=== PATIENT | female | born 1965 | race Caucasian/White ===

== ENCOUNTER 2017-05-18 09:30 | Observation (INO) | payer OTHER ==
[~2017-05-18] VITALS: Ht 167.6 cm; Wt 85.7 kg
--- NOTE | 2017-05-18 13:52 | NUR ---
PATIENT HERE TODAY FOR PREADMISSION APPOINTMENT. PATIENT IS SCHEDULED TO HAVE SURGERY ON 05/31/17 FOR LEFT TOTAL HIP ARTHROPLASTY. PATIENT STATES SHE HAS WENT TO [facility] FOR HER PREOP PHYSICAL THERAPY APPONITMENT ALREADY. HER PARENTS WILL BE HERE TO TRANSPORT HER HOME WHEN SHE DISCHARGES AND WILL TRANSPORT HER TO APPOINTMENTS. SHE HAS A WALKER, RAISED TOILET SEAT, CANE, SHOWER CHAIR AND HAND HELD SHOWER HEAD. SHE WILL BE USING HER WALK IN SHOWER WHEN SHE IS HOME. HER HOME HAS TWO STEPS INTO IT AND A HAND RAIL IS BEING BUILT NOW. THERE ARE NO STEPS INSIDE THE HOME. THIS INFORMATION WILL BE SENT TO DR HARDING OFFICE AND MI PLANNING FOR FOLLOW UP.
[2017-05-31] MEDS ORDERED: ASMANEX220 MC1 INH (07:18)
[2017-05-31] MEDS ORDERED: CYMBALTA60 MG PO (07:19)
[2017-05-31] MEDS ORDERED: ZYRTEC10 MG PO (07:19)
[2017-05-31] MEDS ORDERED: FLONASE ALLERG9.9 ML NAS (07:19)
[2017-05-31] MEDS ORDERED: MIRAPEX0.25 MG PO (07:19)
[2017-05-31] MEDS ORDERED: ULTRAM50 MG PO (07:20)
[2017-05-31] MEDS ORDERED: TYLENOL EXTRA500 MG PO (07:20)
[2017-05-31] MEDS ORDERED: DAYPRO600 MG PO (07:20)
[2017-05-31] MEDS ORDERED: IRON325 M1 PO (07:21)
--- NOTE | 2017-05-31 08:48 | NUR ---
PT SITTING ON BED-ALERT, ORIENTED AND SUPPORTED BY FAMILY. PT ADMITTED THAT SHE WAS SOMEWHAT ANXIOUS ABOUT SURGERY TODAY. VISITED WITH HER FOR A MOMENT, AND WALKED HER THRU SOME OF WHAT SHE COULD EXPECT FOR TODAY. SHE HAD ALL THE INFO SHE NEEDED, SHE JUST SIMPLY WAS OVERTAKEN BY SOME FEAR. HAD PRAYER WITH PT, WILL CONTINUE TO FOLLOW NEEDED
--- NOTE | 2017-05-31 11:14 | NUR ---
05/31/17 1114 Ary Lucio 1034 PT ARRIVED IN PACU SLEEPY WITH NO C/O'S. 1100 PT AWAKE TALKING TO STAFF. XRAY IN DEPT DOING L HIP XRAY. CRYOCUFF TO L HIP ON.
--- NOTE | 2017-05-31 11:47 | NUR ---
PT DENIES PAIN. CAME TO FLOOR TO ROOM 114 FROM PACU, ACCOMPANIED BY CODIE JONES. RECIEVED REPORT FROM CODIE JONES. PT REPORTS NAUSEA HAS MOSTLY CLEARED, BUT DOES COME IN "WAVES" OCCASIONALLY. NO EMESIS. PT HAD SPINAL, IS UNABLE TO MOVE FEET OR TOES, NUMB FROM JUST ABOVE KNEE DOWN.
--- NOTE | 2017-05-31 12:20 | NUR ---
PATIENT SITTING UP IN BED RESTING. CALL BUTTON IN REACH. NO OTHER NEEDS AT THIS TIME.
--- NOTE | 2017-05-31 12:30 | NUR ---
PT IN BED, AWAKE, ALERT. DERMATOME LEVEL AT L3. PT DENIES PAIN. PEDAL PULSES PALPABLE. FEET COOL, CAPILARY REFILL 2 SECONDS. DRESSING TO LEFT HIP C/D/I. SCDs, TEDs, BOLSTER CUSHION, CRYO CUFF IN PLACE.
--- NOTE | 2017-05-31 13:24 | NUR ---
PT TOLERATING CLEAR LIQUIDS. GAVE PT CRACKERS. EDUCATED PT TO CALL IF SHE EXPERIENCES NAUSEA. PT'S SPINAL CONTINUES TO RESOLVE EXPECTED. PT IS NOW ABLE TO MOVE FEET AND TOES. DERMATOME LEVEL L4. DRESSING TO LEFT HIP C/D/I. PT DENIES PAIN, DENIES NAUSEA. CAPILARY REFILL 2 SECONDS TO BOTH FEET, PEDAL PULSES PALPABLE.
--- NOTE | 2017-05-31 13:59 | NUR ---
PT DOING WELL, NOSE ITCHED REQUESTED TISSUE. NO PAIN AT MOMENT, HAD PLEASANT VISIT, SHE IS ALERT AND ORIENTED. EXTENDED A BLESSING, WILL CONTINUE TO FOLLOW
--- NOTE | 2017-05-31 14:13 | NUR ---
DR. TIM IN TO SEE PATIENT.
[2017-05-31] MEDS ORDERED: MUPIROCIN22 GM NAS (14:35)
--- NOTE | 2017-05-31 14:46 | NUR ---
PATIENT GIVEN INFORMATION ON NUCYNTA AND VOLTAREN MEDICATIONS.
--- NOTE | 2017-05-31 15:00 | NUR ---
PT WORKED WITH PHYSICAL THERAPY IN ROOM. SAT UP AT EDGE OF BED, THEN STOOD WITH GAIT BELT WITH 1 PERSON ASSIST USING FWW. TOOK 3-4 STEPS AT BEDSIDE. PT DENIES PAIN. DENIES NAUSEA. DRESSING TO LEFT HIP C/D/I, CMS INTACT. PT REPORTS SENSATION TO BILATERAL FEET/TOES INTACT.
--- NOTE | 2017-05-31 15:38 | NUR ---
PT HAD EPISODE OF INCONTINANCE X 1.
[2017-05-31] MEDS ORDERED: VITAMIN C1000 MG PO (15:43)
[2017-05-31] MEDS ORDERED: OMEPRAZOLE20 M1 PO (15:47)
[2017-05-31] MEDS ORDERED: HAIR, SKIN & N1 EAC1 PO (15:48)
[2017-05-31] MEDS ORDERED: B-COMPLEX WITH1 EAC1 PO (15:49)
--- NOTE | 2017-05-31 16:49 | NUR ---
PT UP TO BEDSIDE COMMODE USING FWW. 1 PERSON ASSIST, TOLERATED TRANSFER WELL.
--- NOTE | 2017-05-31 16:55 | NUR ---
PATIENT RESTING IN BED. CALL BUTTON IN REACH. NO OTHER NEEDS AT THIS TIME.
--- NOTE | 2017-05-31 16:59 | NUR ---
PT HAD LEFT TOTAL HIP SURGERY TODAY. HAS MEPILEX, GAUZE, AND OPSITE TO SURGICAL SITE. DRESSING C/D/I. PT HAD SPINAL. PT REPORTS SENSATION HAS RETURNED FULLY. PT HAS VOIDED X 2 THUS FAR, ONE INCONTINENT VOID, THEN ONE VOID OF URINE ON BEDSIDE COMMODE. PT ALERT, ORIENTED X 4. CMS TO BILATERAL LOWER EXTREMITIES INTACT. PT ON RA, LUNGS CTA, DIMINISHED IN BASES. HEART RATE REGULAR. HAS DENIED PAIN.
--- NOTE | 2017-05-31 18:15 | NUR ---
PATIENT RESTING IN BED WATCHING TV. ICE IN CRYO. NO OTHER NEEDS AT THIS TIME. CALL BUTTON IN REACH.
--- NOTE | 2017-05-31 18:28 | NUR ---
STARTED 1L NS BOLUS. PT DENIES FEELING LIGHTHEADED OR DIZZY. PT RATED PAIN TO LEFT HIP 2/10, REPORTED THAT THIS IS A TOLERABLE LEVEL OF PAIN FOR HER. CALL BUTTON AND PERSONAL SUPPLIES IN REACH. PT TOLERATED 75% OF REGULAR DIET DINNER.
--- NOTE | 2017-05-31 20:05 | NUR ---
UPDATED DR. TIM REGARDING PATIENT'S BP OF 85/45. 500 ML LR BOLUS TO BE GIVEN. DR. HARDING UPDATED AND IS AGREEABLE TO PLAN. WILL MONITOR BP CLOSELY.
--- NOTE | 2017-05-31 21:16 | NUR ---
NOTIFIED DR TIM PT BLOOD PRESSURE POST IVF BOLUS. ORDERS FOR MAINTANCE FLUIDS RECEIVED.
--- NOTE | 2017-05-31 22:57 | NUR ---
1 PERSON ASSIST TO THE BEDSIDE COMMODE WITH WALKER. PATIENT TOLERATED WELL. PATIENT IS BACK IN BED. CALL LIGHT WITHIN REACH. CRYO SCDS ARE BACK ON. PATIENT ASKED FOR SNACK. GAVE CRACKERS AND CRANBERRY JUICE.
--- NOTE | 2017-06-01 02:08 | NUR ---
UPDATED DR. TIM REGARDING PATIENT'S BP OF 97/34 WITH A MAP OF 47. NO NEW ORDERS AT THIS TIME. DR. TIM APPROVES TORDOL FOR PAIN CONTROL AND TO AVOID OPIOIDS.
--- NOTE | 2017-06-01 02:40 | NUR ---
PATIENT RESTING COMFORTABLY IN BED, BREATHING IS EVEN AND UNLABORED. REPORTS 2/10 PAIN AT REST, 5 TO 6/10 WITH AMBULATION. PATIENT CONTINUES TO BE HYPOTENSIVE. DR. TIM MADE AWARE OF BP. PRN TORDOL GIVEN. PATIENT DENIES FURTHER NEEDS. ASSESSMENT DONE. CALL LIGHT WITHIN REACH, ALL ORDERS IN PLACE.
--- NOTE | 2017-06-01 04:58 | NUR ---
PATIENT HAS BEEN RESTING THROUGHOUT SHIFT. PAIN WELL CONTROLLED WITH PRN TORDOL. HAS BEEN HYPOTENSIVE THROUGHOUT SHIFT, REQUIRED 500 ML LR BOLUS. PATIENT'S BP REMAINED LOW AFTER BOLUS, NO FURTHER BOLUSES ADMINISTERED PER DR. TIM. ALL OTHER VITAL SIGNS STABLE. PATIENT IS ALERT AND ORIENTED, CALLS APPROPRIATELY. LUNGS ARE CLEAR, SATS >92% ON ROOM AIR. BOWEL TONES ARE HYPOACTIVE, PATIENT REFUSED TO TAKE MILK OF MAGNESIA DESPITE EDUCATION. DRESSING REMAINS CDI, CMS INTACT. 1PA/FWW, HAS IV FLUIDS INFUSING.
--- NOTE | 2017-06-01 06:16 | NUR ---
UPDATED DR. TIM REGARDING PATIEN'S MAP OF 57 AND LOW URINE OUTPUT. NO NEW ORDERS AT THIS TIME.
--- NOTE | 2017-06-01 06:16 | NUR ---
ASSISTED PATIENT TO BSC WITH 1PA/FWW. TOLERATED WELL. NOW RESTING COMFORTABLY IN BED, BREATHING IS EVEN AND UNLABORED. REPORTS 3/10 PAIN IN LEFT HIP. DENIES NEEDS AT THIS TIME. CALL LIGHT WITHIN REACH.
--- NOTE | 2017-06-01 07:10 | NUR ---
REPORT RECEIVED FROM CODIE HILLMAN. PT IS AWAKE AND ALERT SITTING UP IN BED. APPEARS COMFORTABLE AND DENIES NEEDS AT THIS TIME.
--- NOTE | 2017-06-01 08:51 | NUR ---
AM MEDS ADMINISTERED. PT SITTING UP IN BED. BRUSHED TEETH AND WASHED FACE. CRYO REFILLED AND IN PLACE. SCDS AND AES IN PLACE. DENIES OTHER NEEDS AT THIS TIME. PLAN TO WORK WITH PHYSICAL THERAPY THIS AM AND AMBULATE AD DIOR. CALL LIGHT IN REACH.
--- NOTE | 2017-06-01 10:57 | NUR ---
PT SITTING UP IN CHAIR TALKING IN ON PHONE. DENIES NEEDS ATT.
--- NOTE | 2017-06-01 11:00 | NUR ---
PT SITTING UP IN CHAIR WITH LEGS ELEVATED. PT STATED PAIN WAS INCREASING, CRYO PUT BACK IN PLACE. CALL LIGHT IN REACH. DENIES OTHER NEEDS AT THIS TIME. ON PHONE WITH FAMILY.
--- NOTE | 2017-06-01 13:06 | NUR ---
PT LAYING IN BED. STATED PAIN WAS 5/10 AND MEDICATION ADMINISTERED. CRYO IN PLACE. DENIES OTHER NEEDS AT THIS TIME.
--- NOTE | 2017-06-01 13:18 | NUR ---
PT SITTING IN CHAIR-CRYO CUFF ON. SEEMS TO BE VERY ALERT AND DENIES ANY PAIN AT THE MOMENT. HAS HAD P.T. EARLIER THIS MORNING, AND I THINK SHE FELT VERY AWKARD AND SELF CONSCIOUS. SHE DOES APPEAR TO BE MOTIVATED TO GET BACK UP ON HER FEET, THANKED ME FOR COMING BY. WILL FOLLOW NEEDED
--- NOTE | 2017-06-01 13:47 | NUR ---
PT LAYING IN BED AFTER UP TO RESTROOM. STUDENT CODIE VICK DID VS AND I\O. ALL STABLE WITH CONTINUING LOW BP.
--- NOTE | 2017-06-01 14:26 | NUR ---
CALLED DR MONTES REGARDING LOW POTASSIUM, HE ORDERED 30 MEQ KRIDER X2 OVER 2HRS. PUT IN ORDER. WILL HANG WHEN AVAILABLE.
--- NOTE | 2017-06-01 14:45 | NUR ---
PT SITTING UP IN BED. HAD JUST FINISHED WITH PHYSICAL THERAPY. RATED PAIN 5/10. GIVEN MUNDO. TYLENOL. CRYO IN PLACE. SCD'S IN PLACE. PT HAS VISITORS IN ROOM. DENIES OTHER NEEDS AT THIS TIME.
--- NOTE | 2017-06-01 15:28 | NUR ---
PT SITTING UPRIGHT IN BED. ADMINSITERED TYLENOL. DRESSING CDI. PT DENIES CONCERNS.
--- NOTE | 2017-06-01 18:10 | NUR ---
PT CALLED TO REPORT INCREASING PAIN. ASSESSED VS, BP NOW WNL. CALLED DR HARDING HE DC'D TYLENOL AND ADDED NORCO. DENIED REQUEST FOR FLEXERIL. WILL ADMINISTER WHEN VERIFIED.
--- NOTE | 2017-06-01 19:30 | NUR ---
RECEIVED REPORT FROM RN. PATIENT IS RESTING COMFORTABLY IN BED, BREATHING IS EVEN AND UNLABORED. DENIES NEEDS AT THIS TIME. CALL LIGHT WITHIN REACH, ALL ORDERS IN PLACE.
--- NOTE | 2017-06-01 20:30 | NUR ---
PATIENT RESTING COMFORTABLY IN BED, BREATHING IS EVEN AND UNLABORED. REPORTS 3/10 PAIN AND STATES "PAIN IS OKAY WHEN I AM LAYING IN BED." DENIES NEEDS AT THIS TIME. ASSESSMENT DONE. REFUSING TO MILK OF MAGNESIA, SHE STATES "I AM NOT GOING TO TAKE ANY LAXATIVES WHILE I AM IN THE HOSPITAL." CALL LIGHT WITHIN REACH, ALL ORDERS IN PLACE.
--- NOTE | 2017-06-01 21:05 | NUR ---
ASSISTED PATIENT TO BATHROOM WITH 1PA/FWW. TOLERATING AMBULATION WELL. NOW RESTING IN BED, BREATHING IS EVEN AND UNLABORED. DENIES NEEDS AT THIS TIME. CALL LIGHT WITHIN REACH, ALL ORDERS IN PLACE. CRYO-CUFF REFILLED.
--- NOTE | 2017-06-01 23:29 | NUR ---
PATIENT ASSISTED TO BATHROOM WITH SBA/FWW. TOLERATING AMBULATION WELL. NOW RESTING IN BED, BREATHING IS EVEN AND UNLABORED. REPORTS 4/10 PAIN IN LEFT HIP, PRN PERCOCET GIVEN PER EMAR. BP IS 103/50, PULSE IS 60. WILL CONTINUE TO MONITOR BP CLOSELY. PATIENT DENIES FURTHER NEEDS. CALL LIGHT WITHIN REACH, ALL ORDERS IN PLACE.
--- NOTE | 2017-06-02 01:48 | NUR ---
PATIENT ASSISTED TO BATHROOM WITH SBA/FWW. PATIENT STATES "MY PAIN GETS TO ABOUT A 2 OR 3 WHEN I GET UP. IT ISN'T BAD RIGHT NOW. MAYBE A 2." NOW RESTING COMFORTABLY IN BED, BREATHING IS EVEN AND UNLABORED. DENIES FURTHER NEEDS. ASSESSMENT DONE. CALL LIGHT WITHIN REACH.
--- NOTE | 2017-06-02 04:30 | NUR ---
PATIENT ASSISTED TO BATHROOM WITH SBA/FWW. NOW RESTING IN BED, BREATHING IS EVEN AND UNLABORED. REPORTS 4/10 PAIN IN LEFT HIP, PRN NORCO GIVEN PER EMAR. BP OF 118/58 NOTED. PATIENT DENIES FURTHER NEEDS. CALL LIGHT WITHIN REACH.
--- NOTE | 2017-06-02 04:53 | NUR ---
PATIENT SITTING ON EDGE OF BED. REPORTS MUSCLE SPASMS IN LEFT LEG. SECOND TAB OR NORCO GIVEN. PATIENT DENIES FURTHER NEEDS. CALL LIGHT WITHIN REACH.
--- NOTE | 2017-06-02 05:15 | NUR ---
PATIENT RESTING IN BED COMFORTABLY, BREATHING IS EVEN AND UNLABORED. STATES "THOSE MUSCLE CRAMPS ARE A LOT BETTER NOW. I FEEL MORE COMFORTABLE." DENIES NEEDS AT THIS TIME. CALL LIGHT WITHIN REACH.
[2017-06-02] MEDS ORDERED: XARELTO10 MG PO (07:30)
[2017-06-02] MEDS ORDERED: NUCYNTA50 MG PO (07:30)
[2017-06-02] MEDS ORDERED: HYDROCODON-ACE1 EA11 PO (07:30)
--- NOTE | 2017-06-02 07:30 | NUR ---
REPORT RECIEVED FROM CODIE HILLMAN. PT AWAKE AND STATES SHE IS HOPING TO GO HOME TODAY. PAIN IS WELL CONTROLLED EXCEPT SOME MUSCLE SPASMS. CRYO IN PLACE.
--- NOTE | 2017-06-02 07:54 | NUR ---
PT UP TO BATHROOM. DID AM CARE. BACK TO BED EATING BREAKFAST. WILL DC LATER TODAY. AMBULATES WELL WITH FWW. DENIES OTHER NEEDS AT THIS TIME.
--- NOTE | 2017-06-02 08:12 | NUR ---
PATIENT SITTING UP IN BED EATING BREAKFAST. TIDIED ROOM, HAS BOTTLED WATER. CALL LIGHT IN REACH, NO OTHER NEEDS.
--- NOTE | 2017-06-02 08:54 | NUR ---
FAXED CHART NOTES TO [facility]. THESE INCLUDED FACESHEET, ORDER, H AND P X2, PROG NOTES, PT EVAL AND NOTES. CALLED AND TALKED WITH DESTINEY FROM [facility]. RECIEVED FAX CONFIRMATION.
--- NOTE | 2017-06-02 09:18 | NUR ---
PT ASSISTED TO GET DRESSED. IV REMOVED WNL. DC TEACHING ON PROCEDURE, S/S OF INFECTION, AND FOLLOW UP PROVIDED. ALL QUESTIONS ANSWERED. PT VERBALIZED UNDERSTANDING.
--- NOTE | 2017-06-02 11:12 | NUR ---
PT DRESSED, SITTING ON SIDE OF BED WAITING FOR HER DAD TO COME FOLLOWING DC. SHE IS HAVING TROUBLE WITH LEG CRAMPS THIS MORNING-DANGLING FEET SHE SAID HELPED. SHE SEEMS READY TO DC, EXTENDED A BLESSING
--- NOTE | 2017-06-02 11:15 | NUR ---
PT UP TO BATHROOM WITH WALKER. RAFAEL MOON IN TO ASSIST. VS STABLE. IV REMOVED WNL. PAIN WELL CONTROLLED. EDUCATION PROVIDED. ALL QUESTIONS ANSWERED. PT WHEELED OUT BY RAFAEL MOON TO HOME.
--- NOTE | 2017-06-14 07:09 | OR ---
[facility] [address], [place] [address] Signed DATE OF OPERATION: 05/31/2017 SURGEON: Mika Brandt MD PREOPERATIVE DIAGNOSIS: Degenerative joint disease, left hip. POSTOPERATIVE DIAGNOSIS: Degenerative joint disease, left hip. PROCEDURE PERFORMED: Left total hip arthroplasty. MANAGER FINE: Lizeth Brooks PA-C. Lizeth was present for the entire surgery and was critical for positioning, retraction, and wound closure. ANESTHESIA: Spinal. IMPLANTS: Secure-Fit advanced size #7 stem and a 54 PSL cup with a standard offset liner +5 x 36 ceramic head. BRIEF HISTORY: Vaughn is a 52-year-old female with pain and significant degeneration in her hip. She had undergone operative treatment without substantial relief. Risks, benefits, and alternatives were discussed with her of surgery and she elected to proceed. DESCRIPTION OF PROCEDURE: Once consent was obtained, she was taken to the operating room. After adequate anesthesia, she was placed on the right lateral decubitus position. All downside pressure points well padded. The left hip was prepped and draped in a standard sterile fashion. We did place an axillary roll as well. The hip was approached anterolaterally through a 5-inch incision carried through skin and subcutaneous tissue, and directly down the IT band. The IT band was split longitudinally. The vastus lateralis was then split from the tip of the trochanter up distally and subperiosteally around the level of the lesser trochanter. The gluteus medius was split bluntly. The gluteus minimus and capsule were split sharply from the trochanter all the way to the acetabular rim. This was then peeled off the anterior neck. The labrum was significantly calcified, and Electronically Signed By: MIKA BRANDT MD 06/14/17 0709 PATIENT NAME: VAUGHN BUCIO OPERATIVE REPORT DATE OF : 61 REPORT #: [id number] PHYSICIAN: MIKA BRANDT MD PCP: DARLIN ROLLINS REPORT IS CONFIDENTIAL AND NOT TO BE RELEASED WITHOUT AUTHORIZATION [facility] [address], [place] [address] Signed there were multiple osteophytes that were removed. The hip was dislocated and the femoral neck cut made 1 fingerbreadth above the lesser trochanter. The periacetabular soft tissues were removed and the stem was reamed starting with a 46 and going to 54. The 54 was found to be quite well fitting. The 54 cup was then impacted into excellent position. The abduction was 45 degrees and 15 degrees of anteversion. A single screw was placed in the posterosuperior quadrant. The attention was turned to proximal femur. This was opened using the ernesto cutter followed by the Rosales awl. It was then sequentially reamed up to a 7, 8 and broached to a 7. The 7 was quite well fitting and left in position. The standard offset neck and +0 head was placed. The hip was a little bit sloppy and the +5 showed good range of motion and leg lengths. The trials were removed. The proximal femur was then cleaned and the final stem was impacted until it was well seated. The +5 head was placed on it and impacted until it was well seated. It was quite stable. The hip was reduced. The leg lengths found to be equal. The range of motion was good with no quad tightness. The hip was lavaged using a pulse health insurance assessor with 3 L of antibiotic irrigation was used. The periarticular soft tissues were injected with 100 mL ropivacaine and Toradol mixture. The capsule was then closed using #1 Vicryl. The vastus and IT bands were closed independently using #2 Stratafix. The subcutaneous tissue with 0 Stratafix, and skin with urban. Wound was dressed with Mepilex Ag dressing and Opsite. She was placed in a hip abduction brace, taken to the recovery room in satisfactory condition. All sponge, needle, and instrument counts were correct. Mika Brandt MD BA/MENDEZL /[id number] Copies: ~ Electronically Signed By: MIKA BRANDT MD 06/14/17 0709 PATIENT NAME: VAUGHN BUCIO OPERATIVE REPORT DATE OF : 61 REPORT #: [id number] PHYSICIAN: MIKA BRANDT MD PCP: DARLIN ROLLINS REPORT IS CONFIDENTIAL AND NOT TO BE RELEASED WITHOUT AUTHORIZATION
== END 2017-06-02 11:25 | disposition home or self-care (01) ==
LOC: DSVR 05-31 06:51 → MS 05-31 06:51 → EDSTATUS 05-31 09:00 → MS 05-31 09:00 → DSVR 05-31 11:23 → MS 06-02 11:25
PROVIDERS: ADMIT Specialist
PROC: 0SRB04Z Replacement of Left Hip Joint with Ceramic on Polyethylene Synthetic Substitute, Open Approach (ICD-10-PCS; principal; 2017-05-31 09:00)
DX: M16.12 Unilateral primary osteoarthritis, left hip (principal); G25.81 Restless legs syndrome; J45.30 Mild persistent asthma, uncomplicated; M79.7 Fibromyalgia; D50.9 Iron deficiency anemia, unspecified; K21.9 Gastro-esophageal reflux disease without esophagitis; I95.9 Hypotension, unspecified; Z79.891 Long term (current) use of opiate analgesic; Z79.51 Long term (current) use of inhaled steroids; Z79.899 Other long term (current) drug therapy; Z87.891 Personal history of nicotine dependence; Z88.1 Allergy status to other antibiotic agents; Z88.0 Allergy status to penicillin; Z88.2 Allergy status to sulfonamides
CPT/HCPCS: 01214; 36415; 72170; 80048; 85025; 94640; 96361; 96372; 96374; 96375; 96376; 97110; 97116; 97163; 97165; 97530; C1776; G0378; J0690; J1885; J2250; J2274; J2300; J2405; J2704; J3010; J3370; J7030; J7040; J7050; J7120

== ENCOUNTER 2020-12-27 07:53 | Emergency (ER) | payer OTHER ==
[~2020-12-27] VITALS: Ht 167.6 cm; Wt 81.7 kg
[~2020-12-27 07:53] MED LIST: ASMANEX220 MC1 INH; B-COMPLEX WITH1 EAC1 PO; CYMBALTA60 MG PO; DAYPRO600 MG PO; FLONASE ALLERG9.9 ML NAS; HAIR, SKIN & N1 EAC1 PO; HYDROCODON-ACE1 EA11 PO; IRON325 M1 PO; MIRAPEX0.25 MG PO; MUPIROCIN22 GM NAS; NUCYNTA50 MG PO; OMEPRAZOLE20 M1 PO; TYLENOL EXTRA500 MG PO; ULTRAM50 MG PO; VITAMIN C1000 MG PO; XARELTO10 MG PO; ZYRTEC10 MG PO
[2020-12-27] MEDS ORDERED: WELLBUTRIN XL300 MG PO (08:26)
[2020-12-27] MEDS ORDERED: ONDANSETRON ODT8 MG PO (09:40)
== END 2020-12-27 10:04 | disposition home or self-care (01) ==
LOC: ED 07:53
DX: K52.9 Noninfective gastroenteritis and colitis, unspecified (principal); J45.909 Unspecified asthma, uncomplicated; Z20.822 Contact with and (suspected) exposure to COVID-19; Z87.891 Personal history of nicotine dependence; Z88.0 Allergy status to penicillin; Z88.1 Allergy status to other antibiotic agents; Z88.2 Allergy status to sulfonamides; Z91.018 Allergy to other foods; Z79.01 Long term (current) use of anticoagulants; Z79.899 Other long term (current) drug therapy
CPT/HCPCS: 80053; 85025; 96374; 99284-25; J2405; J7030; U0003

== ENCOUNTER 2021-11-18 07:10 | Inpatient (IN) | payer OTHER ==
[~2021-11-18] VITALS: Ht 165.1 cm; Wt 95.0 kg
--- NOTE | ~2021-11-18 | EKG ---
[facility] [address] [facility] [place], [place] [address] Draft EK completed, results pending confirmation PATIENT NAME: RUPINDERVAUGHN COHN Electrocardiogram DATE OF : 61 PHYSICIAN: PRELIMINARY REPORT #: [id number] REPORT IS CONFIDENTIAL AND NOT TO BE RELEASED WITHOUT AUTHORIZATION
[~2021-11-18 07:10] MED LIST changes: +ONDANSETRON ODT8 MG PO; +WELLBUTRIN XL300 MG PO
--- OUTSIDE RECORDS SUMMARY | 2021-11-18 07:18 | XMS ---
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 - 2 Visits in 30 Days CARE PROVIDERS DARLIN KING Physician Planner Scheduler Current PHONE: Unknown Andrew has no Care Guidelines for this patient. [facility] VISIT COUNT (12 MO.) 3 [facility] TOTAL 3 NOTE: Visits indicate total known visits. 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
[2021-11-18] MEDS ORDERED: ASMANEX220 MC3 (07:28)
[2021-11-18] MEDS ORDERED: PRAMIPEXOLE D0.25 MG PO ×2 (07:28→22:37)
[2021-11-18] MEDS ORDERED: OXAPROZIN600 MG PO (07:28)
[2021-11-18] MEDS ORDERED: BUPROPION XL300 MG PO (22:36)
[2021-11-18] MEDS ORDERED: DULOXETINE HCL60 MG PO (22:37)
== END 2021-11-21 13:25 | disposition home or self-care (01) | DRG 871 ==
LOC: ED 07:10 → MS 11:47
PROVIDERS: ADMIT Family Medicine; ATTEND Family Medicine
PROC: XW033E5 Introduction of Remdesivir Anti-infective into Peripheral Vein, Percutaneous Approach, New Technology Group 5 (ICD-10-PCS; principal; 2021-11-18)
PROC: 3E0333Z Introduction of Anti-inflammatory into Peripheral Vein, Percutaneous Approach (ICD-10-PCS; 2021-11-18)
PROC: 8E0ZXY6 Isolation (ICD-10-PCS; 2021-11-18)
PROC: XW033H6 Introduction of Other New Technology Monoclonal Antibody into Peripheral Vein, Percutaneous Approach, New Technology Group 6 (ICD-10-PCS; 2021-11-18)
PROC: 4A133R1 Monitoring of Arterial Saturation, Peripheral, Percutaneous Approach (ICD-10-PCS; 2021-11-18)
DX: A41.89 Other specified sepsis (principal); U07.1 COVID-19; N17.9 Acute kidney failure, unspecified; E87.2 Acidosis; A08.39 Other viral enteritis; J45.909 Unspecified asthma, uncomplicated; Z98.84 Bariatric surgery status; E86.0 Dehydration; Z23 Encounter for immunization; E83.42 Hypomagnesemia; Z96.642 Presence of left artificial hip joint; Z87.891 Personal history of nicotine dependence; Z98.890 Other specified postprocedural states; Z88.0 Allergy status to penicillin; Z88.2 Allergy status to sulfonamides; Z88.1 Allergy status to other antibiotic agents; Z91.018 Allergy to other foods; Z79.899 Other long term (current) drug therapy; Z79.01 Long term (current) use of anticoagulants; Z79.52 Long term (current) use of systemic steroids
CPT/HCPCS: 36415; 36600; 71045; 80053; 80076; 81001; 82803; 83605; 83735; 84484; 85025; 87040; 87502; 93005; 93010; 94640; 94760; 96361; 96374; 96375; 99285-25; A9270; C9803; J0248; J1100; J1650; J1885; J2060; J2405; J3475; J7050; J7121; U0003

== ENCOUNTER 2021-12-18 08:37 | Emergency (ER) | payer OTHER ==
[~2021-12-18] VITALS: Ht 165.1 cm; Wt 90.7 kg
[~2021-12-18 08:37] MED LIST changes: +ASMANEX220 MC3; +BUPROPION XL300 MG PO; +DULOXETINE HCL60 MG PO; +OXAPROZIN600 MG PO; +PRAMIPEXOLE D0.25 MG PO
--- OUTSIDE RECORDS SUMMARY | 2021-12-18 08:44 | XMS ---
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 - Patient with suicidal and/or homicidal ideations eloped. - Patient eloped with IV in place. Details: PATIENT LWBS CRITERIA MET - [facility] - 2 Visits in 30 Days CARE PROVIDERS DARLIN KING Physician Current PHONE: Unknown Andrew has no Care Guidelines for this patient. [facility] VISIT COUNT (12 MO.) [address] [place] [address] TOTAL 4 NOTE: Visits indicate total known visits. 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 - Allergy status to penicillin - Noninfective gastroenteritis and colitis, unspecified - Unspecified asthma, uncomplicated - Fever, unspecified INPATIENT VISIT TRACKING (12 MO.) 11/18/2021 11:47 [facility] TYPE: [facility] COMPLAINT: - SEPSIS,COVID DIAGNOSES: - Unspecified asthma, uncomplicated - 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 card 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 - Acidosis - Other specified sepsis - Personal history of nicotine dependence - Personal history of nicotine dependence - Allergy status to sulfonamides - Other specified postprocedural states - Other specified sepsis - Other specified postprocedural states - Allergy status to other antibiotic agents - Presence of left artificial hip joint - Dehydration - Allergy to other foods - Acute kidney failure, unspecified - Other residential (current) drug therapy - Acidosis - intermodal customer service (current) use of systemic steroids - intermodal customer service (current) use of anticoagulants - Allergy to other foods - intermodal customer service (current) use of anticoagulants - Bariatric surgery status - intermodal customer service (current) use of systemic steroids - Hypomagnesemia - Dehydration - Hypomagnesemia - Bariatric surgery status - COVID-19 - Allergy status to penicillin - Other viral enteritis - Allergy status to penicillin - Encounter for immunization - Unspecified asthma, uncomplicated - Acute kidney failure, unspecified - Encounter for immunization - Allergy status to other antibiotic agents - Allergy status to sulfonamides - Viral intestinal infection, unspecified - Other viral enteritis - Presence of left artificial hip joint [id number]
[2021-12-18] MEDS ORDERED: ATIVAN2 MG PO (11:50)
[2021-12-18] MEDS ORDERED: ONDANSETRON ODT8 MG PO (11:50)
== END 2021-12-18 12:30 | disposition home or self-care (01) ==
LOC: ED 08:37
DX: K52.9 Noninfective gastroenteritis and colitis, unspecified (principal); N17.9 Acute kidney failure, unspecified; Z20.822 Contact with and (suspected) exposure to COVID-19; J45.909 Unspecified asthma, uncomplicated; Z87.891 Personal history of nicotine dependence; Z88.0 Allergy status to penicillin; Z88.1 Allergy status to other antibiotic agents; Z88.2 Allergy status to sulfonamides; Z91.018 Allergy to other foods; Z79.899 Other long term (current) drug therapy
CPT/HCPCS: 36415; 71045; 80053; 85025; 87502; 96361; 96374; 96375; 99284-25; A9270; C9803; J1200; J1790; J1885; J2060; J2405; J7030; J7121; U0003

== ENCOUNTER 2022-03-25 09:01 | Emergency (ER) | payer OTHER ==
[~2022-03-25] VITALS: Ht 165.1 cm; Wt 90.7 kg
[~2022-03-25 09:01] MED LIST changes: +ATIVAN2 MG PO
[2022-03-25] MEDS ORDERED: CHLORDIAZEPOXID25 MG PO (14:41)
[2022-03-25] MEDS ORDERED: FOLIC ACID1 MG PO (14:51)
[2022-03-25] MEDS ORDERED: VITAMIN B-1100 M1 PO (14:51)
== END 2022-03-25 15:00 | disposition home or self-care (01) ==
LOC: ED 09:01
DX: F10.130 Alcohol abuse with withdrawal, uncomplicated (principal); J45.909 Unspecified asthma, uncomplicated; M79.7 Fibromyalgia; Y90.0 Blood alcohol level of less than 20 mg/100 ml; Z87.891 Personal history of nicotine dependence; Z88.0 Allergy status to penicillin; Z88.2 Allergy status to sulfonamides; Z88.1 Allergy status to other antibiotic agents; Z91.018 Allergy to other foods; Z79.899 Other long term (current) drug therapy
CPT/HCPCS: 36415; 80053; 83690; 83735; 85025; 96361; 96365; 96366; 96375; 99284-25; G0480; J2405; J3411; J7030

== ENCOUNTER 2022-05-26 10:01 | Emergency (ER) | payer OTHER ==
[~2022-05-26] VITALS: Ht 165.1 cm; Wt 90.7 kg
[~2022-05-26 10:01] MED LIST changes: +CHLORDIAZEPOXID25 MG PO; +FOLIC ACID1 MG PO; +VITAMIN B-1100 M1 PO
[2022-05-26] MEDS ORDERED: CHLORDIAZEPOXID25 MG PO (13:25)
--- NOTE | 2022-05-27 16:41 | EKG ---
[facility] [address] [facility] [place] [address] Signed Sinus tachycardia Nonspecific ST and T wave abnormality Abnormal ECG When compared with ECG of 18-NOV-2021 07:20, Nonspecific T wave abnormality no longer evident in Lateral leads Confirmed by JIGNA TIM MD ([id number]) on 05/27/2022 4:41:13 PM Electronically Signed By: JIGNA TIM MD 05/27/22 1641 PATIENT NAME: RUPINDERVAUGHN Electrocardiogram DATE OF : 61 PHYSICIAN: JIGNA TIM MD REPORT #: [id number] REPORT IS CONFIDENTIAL AND NOT TO BE RELEASED WITHOUT AUTHORIZATION
== END 2022-05-26 14:07 | disposition home or self-care (01) ==
LOC: ED 10:01
DX: B34.9 Viral infection, unspecified (principal); F10.10 Alcohol abuse, uncomplicated; Y90.0 Blood alcohol level of less than 20 mg/100 ml; J45.909 Unspecified asthma, uncomplicated; Z87.891 Personal history of nicotine dependence; Z88.0 Allergy status to penicillin; Z91.018 Allergy to other foods; Z88.1 Allergy status to other antibiotic agents; Z88.2 Allergy status to sulfonamides; Z79.899 Other long term (current) drug therapy
CPT/HCPCS: 36415; 71045; 80053; 81003; 85025; 85379; 87502; 87880; 93005; 93010; 96374; 96375; 99285-25; A9270; C9803; G0480; J2060; J2405; J3411; J7121; U0003

== ENCOUNTER 2022-08-05 16:23 | Inpatient (IN) | payer OTHER ==
[~2022-08-05] VITALS: Ht 165.1 cm; Wt 94.8 kg
[2022-08-05] VITALS (8 sets, daily range): BP systolic 108–133; BP diastolic 51–78
--- OUTSIDE RECORDS SUMMARY | 2022-08-05 16:26 | XMS ---
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 - Patient with suicidal and/or homicidal ideations eloped. - Patient eloped with IV in place. 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 Ciara VISIT COUNT (12 MO.) 6 [facility] TOTAL 6 NOTE: Visits indicate total known visits. 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 - Personal history of nicotine dependence - Unspecified asthma, uncomplicated - Viral infection, unspecified 03/25/2022 09:02 [facility] TYPE: Emergency COMPLAINT: - N/V/D DIAGNOSES: - Alcohol abuse with withdrawal, uncomplicated - Allergy status to other antibiotic agents - Allergy status to penicillin - Allergy status to sulfonamides - Allergy to other foods - Blood alcohol level of less than 20 mg/100 ml - Fibromyalgia - Nausea with vomiting, unspecified - Other shelter (current) drug therapy - Personal history of nicotine dependence - Unspecified asthma, uncomplicated 12/18/2021 08:37 [facility] TYPE: Emergency COMPLAINT: - FLU SYMPTOMS DIAGNOSES: - Acute kidney failure, unspecified - Allergy status to other antibiotic agents - Allergy status to penicillin - Allergy status to sulfonamides - Allergy to other foods - Contact with and (suspected) exposure to COVID-19 - Diarrhea, unspecified - Noninfective gastroenteritis and colitis, unspecified - 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 - Personal history of nicotine dependence - Unspecified asthma, uncomplicated 11/18/2021 07:10 [facility] TYPE: Emergency COMPLAINT: - WEAKNESS 10/23/2021 12:27 [facility] TYPE: Emergency COMPLAINT: - FLU SYMPTOMS INPATIENT VISIT TRACKING (12 MO.) 11/18/2021 11:47 [facility] TYPE: Medical Surgical COMPLAINT: - SEPSIS,COVID DIAGNOSES: - Acidosis - Acidosis - Acute kidney failure, unspecified - Acute kidney failure, unspecified - Allergy status to other antibiotic agents - Allergy status to other antibiotic agents - Allergy status to penicillin - Allergy status to penicillin - Allergy status to sulfonamides - Allergy status to sulfonamides - Allergy to other foods - Allergy to other foods - Bariatric surgery status - Bariatric surgery status - COVID-19 - Dehydration - Dehydration - Encounter for immunization - Encounter for immunization - Hypomagnesemia - Hypomagnesemia - intermediate (current) use of anticoagulants - intermediate (current) use of anticoagulants - intermediate (current) use of systemic steroids - intermediate (current) use of systemic steroids - Other shelter (current) drug therapy - 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
--- NOTE | 2022-08-05 21:15 | NUR ---
PT ARRIVED TO ROOM 129 FROM E.D. WITH EMisael RN MACEY Louise, PT ALERT, CONFUSED. SHE IS ABLE TO ASSIST WITH TRANSFER TO HOSP BED FROM STRETCHER, SKIN CHECK, INTACT WITH BRUISES SCATTERED ON ALL EXTREMITIES, BUTTOCKS/HIPS/KNEES/ AND RIGHT FOREHEAD, WITH SMALL LACERATION ABOVE RIGHT EYE, BRUISE AROUND RIGHT EYE.
--- NOTE | 2022-08-05 23:20 | NUR ---
PT ADMINISTERED ATIVAN AT THIS TIME FOR CIWA OF 12, SHE REMAINS RESTLESS/ANXIOUS AND ATTEMPTING TO GET OUT OF BED. SHE CONTINUEST TO ASK FOR HER FATHER BILL TO BE CALLED, HE HAS BEEN HERE WITH HER IN THE ER. PER REPORT HE LEFT AND SAID HE WOULD COME BACK TO VISIT. PT WHILE RESTLESS HER HEART RATE INCREASES HIGH 130/MIN
--- NOTE | 2022-08-05 23:39 | NUR ---
PT RESTING IN BED EYES CLOSED RR REGULAR 18/MIN, SNORING NOTED. 100% OXYGEN SATURATIONS ON 2L N.C.
[2022-08-06] VITALS (15 sets, daily range): BP systolic 93–130; BP diastolic 45–98
--- NOTE | 2022-08-06 00:48 | NUR ---
PT RESTING IN BED NOTED TO HAVE SMALL EMESIS AND COUGHING ALSO HEART RATE INCREASED TO 130/MIN AND REQUIRED 2L OXYGEN PLACED AGAIN. CALLED TO UPDATE, GIVEN ONE TIME ADDITIONAL DOSE OF ZOFRAN 4MG IV.
--- NOTE | 2022-08-06 01:15 | NUR ---
PT RESTING IN BED, EYES CLOSED. NO DISTRESS NOTED. NO FURTHER EMESIS. V/S STABLE AT THIS TIME
--- NOTE | 2022-08-06 01:33 | NUR ---
PT AWAKE, COUGHING, PT ABLE TO ANSWER QUESTIONS APPROPRIATELY, SHE CAN VERBALIZE FULL NAME AND DATE OF . SHE REPORTS NO PAIN OR NAUSEA AT THIS TIME.
--- NOTE | 2022-08-06 02:51 | NUR ---
PT COUGHING ALERT, TWO RN'S IN TO CHANGE ATTENDS AND PT HAD BM AND SMALL VOID OF URINE IN ATTENDS, NEW PURWICK PLACED, NEW GOWN AND LINENS SHE HAD SMALL EMESIS EARLIER THAT WAS CLEANED, BUT NOTED AT THIS TIME TO BE ON SHEET AND GOWN. PT TOLERATED ACTIVITY WELL ASSISTED WITH BED MOBILITY, SHE IS ORIENTED TO PLACE AND SELF AT THIS TIME. SHE DOES NOT REMEMBER EVENT OR E.D. SEE CONTINUES TO HAVE CONCERN FOR HER TWO CATS AT HOME. PT ALSO SAID "WHAT HAVE I DONE TO MYSELF, IM ALL BRUISED UP" THIS RN ASSURED PT THAT FOR RIGHT NOW WE WILL JUST FOCUS ON GETTING BETTER AND THEN STAFF CAN DISCUSS WHAT CAN BE DONE TO ENSURE A SAFE DISCHARGE PLAN, PT NODDED HER HEAD IN AGREEMENT.
--- NOTE | 2022-08-06 03:22 | NUR ---
PT ALERT VERBAQLIZES SHE NEEDS TO PEE, DISCUSSED WITH PT PURWICK IN PLACE PT SAID "I CANT GO I NEED TO GET UP" PT AGREED TO BLADDER SCAN, BLADDER SCANNED FOR 340ML. ASSISTED PT UP TO BEDSIDE COMMODE, TOLERATED FAIR, ONE PERSON ASSIST. PT REPORTS "I NEED STRAIGHT CATHED", DISCUSSED WITH PT THAT PROTOCOL DOES NOTE INDICATE STRAIGHT CATH FOR 340ML, THIS RN SAID "I WILL BLADDER SCAN YOU AGAIN IN A WHILE IF YOU ARE STILL UNABLE TO VOID" PT CONITNUES TO REQUEST STRAIGHT CATH, ALSO REQUEST DIET 7-UP, DISCUSSED WITH PT THAT SHE HAD EMESIS THREE TIMES TONIGHT AND SHE CAN NOT HAVE ANYTHING ORAL, ORAL CARE PROVIDED WITH SPONGE AND WATER, PT JERKED HER HEAD AWAY FROM CARE AND DEMANDED A DIET 7-UP, THIS RN AGAIN DISCUSSED THAT PER MD ORDERS YOU CAN NOT HAVE ORAL FLUIDS OR FOOD.
--- NOTE | 2022-08-06 04:50 | NUR ---
PT ALERT COUGHING, SUCTION READY AT BEDSIDE, PT SHOOK HER HEAD "NO" TO WANTING SUCTION. SHE SAID "NO" WHEN ASKED IF SHE FELT NAUSEA. HEART RATE UP TO 130/MIN WITH COUGHING.
--- NOTE | 2022-08-06 06:28 | NUR ---
CALLED FOR MURO ORDER AFTER BLADDER SCANNING PT FOR 644ML THIS AM, PT SAID "I DONT FEEL LIKE I CAN PEE" MURO PLACED STERILE FIELD MAINTAINED THROUGHOUT. 600ML URINE RETURN, PT TOLERATED WELL, PT CALLED AND TALKED TO CYNDY ON THE ROOM PHONE.
--- NOTE | 2022-08-06 06:51 | NUR ---
PT CIWA OF 9, ANXIOUS/RESTLESS/FORGETFUL/CONFUSED. ATIVAN 1MG IV ADMINISTERED PRN AT THIS TIME.
[2022-08-06] MEDS ORDERED: PREMPRO 0.3 MG1 EACH PO (07:16)
[2022-08-06] MEDS ORDERED: DULOXETINE HCL30 MG PO (07:17)
--- NOTE | 2022-08-06 07:30 | NUR ---
REPORT RECIEVED FROM DOPE EDGER RN. PATIENT RESTING IN BED. PATIENT IS GOING THROUGH ALCOHOL WITHDRAWLS. WILL CONTINUE TO GIVE PRN ATIVAN NEEDED PER PARAMETERS. SEE EMAR.
[2022-08-06] MEDS ORDERED: PREDNISONE20 MG PO (07:36)
--- NOTE | 2022-08-06 08:30 | NUR ---
PATIENT NOW AWAKE, VERY TERAFUL AND ASKING FOR HER DAD(CYNDY) VITALS AND I&OS CHARTED. URINE OUTPUT CHARTED. BILL AT BEDSIDE NOW AND HAS SEVERAL QUESTIONS, RN YOLA IS WITH ANOTHER PATIENT BUT WAS NOTIFIED. CALL LIGHT IN EASY REACH
--- NOTE | 2022-08-06 09:30 | NUR ---
PATIENT ASSESSMENT COMPLETED. PATIENT IS ALERT AND OREITNED X4. PATIENT IS ABLE TO ADD AND SUBTRACT. PATIENT REMAINS VERY ANXIOUS AND CALLS STAFF FREQUENTLY. PATIENT ASKS THE SAME QUESTION MULTIPLE TIMES AND THEN WHEN STAFF ASK HER WHAT WE SAID PATIENT IS ABLE TO REPEAT IT, BUT CONTINUES TO ASK THE SAME THING. PATIENT IS TREMULOS, ANXIOUS, AND AGITATED. BED ALARM ON FOR PATIENTS SAFETY. PATIENTS BREATH SOUNDS CLEAR AND COARSE AT TIMES. PATIENT ON 1L NC WHEN IN A DEEP SLEEP. PATIENT HAS A MURO CATHETER PLACED. PATIENT HAS CONTINUED LOW URINE OUTPUT. AWARE.
--- NOTE | 2022-08-06 10:50 | NUR ---
THIS RN AND STUDENT MANDA WITH PATIENT TO HEAT CT. PATIENT TOELRATED IMAGING WELL. PATIENT BACK TO HER ROOM AND REPOSITIONED.
--- NOTE | 2022-08-06 11:30 | NUR ---
STAFF HAVE BEEN AT PATIENTS BEDSIDE MOST OF THE MORNING D/T PATIENT CALLING EVERY 1-5 MINUTES. PATIENT IS ALERT AND ORIENTED X4 BUT REMAINS VERY ANXIOUS. SEE EMAR FOR ATIVAN ORDER AND CIWA SCALE DOCUMENTATION. PATIENT CIWA HAS BEEN 13-20. PATIENTS DAD IN THIS MORNING TO SEE PATIENT. WILL CONTINUE TO ENCOURAGE REST AND RELAXATION AND GIVE PRN MEDICATIONS NEEDED.
--- NOTE | 2022-08-06 11:57 | NUR ---
CALLED MD TO UPDATE OF PATIENT HEAD IMAGING. PER MD PATIENT CAN START ON CLEAR LIQUIDS. NEW ORDERS FOR PROTONIX. SEE EMAR. UPDATED MD THAT PATIENT IS VERY ANXIOUS AND ATIVAN DOES NOT SEEM TO BE WORKING. MD WILL THINK ABOUT IT. WILL FOLLOW-UP.
--- NOTE | 2022-08-06 11:59 | NUR ---
PATIENT VERY RESTLESS, ADGITATED, FORGETFUL SINCE SHE WOKE AT 8AM. REPEATED USE OF CALL LIGHT, OFTEN THE MOMENT STAFF WALKS OUT OF HER ROOM, CALLING FOR "HELP" "DIET 7UP" AND "PLEASE CALL MY DAD RIGHT NOW." PATIENT BECOMES VERY FIXATED/DEMANDING ON DIFFERENT REQUESTS. RN AWARE AND AT BEDSIDE AT SI TIME.
--- NOTE | 2022-08-06 12:07 | NUR ---
SIPS OF WATER PROVIDED
--- NOTE | 2022-08-06 12:10 | NUR ---
Spoke with July and she states she lives in a house in [place] with no steps. She has a walker. 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 She states repeatedly she needs to go to rehab. I asked if she would like to speak with J[facility] and they can assist her. She agrees. She is requesting her dad visit and calling out frequently. Pt denies financial issues. Let her know I will contact [facility] and ask them to visit her today. I asked if she plans on taking time off and she again states she needs to go to rehab. I asked if she is aware of FMLA and she is. I will contact [employer] and request their FMLA papers. Pt states its alright to tell HR she is in the hospital. Pt cont. to ask if I will return to see. I let her know it will be either today or tomorrow.
--- NOTE | 2022-08-06 12:32 | NUR ---
50ML OF DIET SPRITE PROVIDED, PATIENT DRANK IT IMMEDIATELY. EATING JELLO AT THIS TIME
--- NOTE | 2022-08-06 14:00 | NUR ---
PATIENT IS NOW RESTING WELL AT THIS TIME. PATIENT PLACED ON 2L NC D/T DESAT TO 85% WITH REST. WILL ALLOW PATIENT TO REST. PATIENTS HR 95 AND SPO2 98% ON 2L NC. RR EVEN AND UNLABORED AT 18.
--- NOTE | 2022-08-06 15:34 | NUR ---
PATIENT AWAKE AND CALLING STAFF EVERY 5 MINUTES FOR ASSISTANCE. PATIENT IS ALERT AND ORIENTEDX4 BUT IS VERY ANXIOUS. WILL DO A CIWA. SEE CHARTING. PATIENT TALKING ON THE PHONE NOW AT THIS TIME WITH HER MOTHER. PATIENT DRINKS FLUIDS WITHIN 30 SECONDS WHEN OFFERED A CLEAR LIQUID TRAY. WILL SPACE FLUID OPTIONS OUT TO HELP SO PATIENT DOES NOT OVER DO IT. PATIENT REMINDED OF THIS. PATIENT CONTINUOUSLY FIXATES ON EVERYTHING. OTTONIEL TRY AND TURNS THE LIGHTS DOWN AND DECREASE STIMULATION.
--- NOTE | 2022-08-06 15:49 | NUR ---
JULI[facility] STAFF MEMBER IN WITH PATIENT AT THIS TIME.
--- NOTE | 2022-08-06 17:14 | NUR ---
email sent to Larissa West to show pts pcp is Dr. Karl King. Requested chart to be updated.
--- NOTE | 2022-08-06 17:30 | NUR ---
PATIENT HAS FRIENDS IN VISITING WITH HER AT THIS TIME. NUMBER PROVIDED ON THE BOARD. THEY WANTED TO KNOW ABOUT HELPING HER WITH SOCIAL SECURITY AND DISABILITY AND MCFP. THIS RN WILL PASS ON INFORMATION TO SASH REPAIRER RN FOR CASEMANAGEMENT TOMORROW. UPDATED ON PLAN OF CARE. BECKY MACKAY IN TO GIVE PRN MEDICATIONS.
--- NOTE | 2022-08-06 18:54 | NUR ---
PATIENT RESTING IN BED. PATIENT CONTINUES TO WANT TO DRINK EXCESIVELY. PATIENT DENIES NAUSEA THIS AFTERNOON. WILL CONTINUE TO GIVE PATIENT CLEAR LIQUIDS ONE CUP AT A TIME. PATIENT WILL DRINK FLUIDS PROVIDED IN LESS THAN ONE MINUTE. PATIENTS MUCUS MEMBRANES ARE MOIST. PATIENT HAS HAD URINE OUTPUT THROUGHOUT THE DAY. NEW IV FLUIDS STARTED.
--- NOTE | 2022-08-06 19:37 | NUR ---
CALLED AND UPDATE DR CASTILLO OF PATIENTS POTASSIUM LEVELS ON LABS THIS AM. NEW ORDERS FOR ORAL POTASSIUM REPLACEMENT. 40 MEQ ORAL ONCE ORDERED. PATIENT STARTED ON ORAL THIS AFTERNOON AND MD WAS WAITING TO REPLACE ELECTROLYTE UNTIL PATIENT TOLERATED ORAL MEDICATIONS.
--- NOTE | 2022-08-06 19:51 | NUR ---
REPORT RECEIVED FROM YOLA MACKAY. IN TO HELP PT UP TO BSC FOR SMALL FORMED STOOL, PT VERY WEAK ON FEET, DID NOT STAND UP VERY WELL, 2PA TO HELP HER BACK TO BED. PT REQUESTING MEDICATIONS AND HER MOM.
--- NOTE | 2022-08-06 21:13 | NUR ---
PT HAS CONTINUED TO CALL FREQUENTLY WITH VARIOUS NEEDS, INCLUDING C/O NAUSEA WITH SMALL AMT OF EMESIS. 4MG IV ZOFRAN GIVEN. PRN ATIVAN GIVEN PT IS ANXIOUS AND TALKING ABOUT HOW SHE CAN'T SLEEP. HS VALIUM WAS GIVEN AN HOUR AGO, PT NOT RELAXING OR LYING BACK TO SLEEP. PT REPEATEDLY HAD REQUESTED FOR HER DAD TO COME IN AND STAY THE NIGHT WITH HER, CALL PLACED TO DAD CYNDY WHO TALKED TO THE PT AND THEN THIS RN STATING HE IS TAKING CARE OF HIS AND WILL NOT BE COMING IN TONIGHT BUT WILL BE HERE IN THE AM.
--- NOTE | 2022-08-06 23:31 | NUR ---
PT CALLING FREQUENTLY WITH SMALL REQUESTS-BROTH, WANTING TO CALL HER FATHER, WANTING TO BE REPOSITIONED. CONT TO STATE SHE CANNOT SLEEP. PRN ATIVAN GIVEN, SEE EMAR.
[2022-08-07] VITALS (13 sets, daily range): BP systolic 104–143; BP diastolic 64–94
--- NOTE | 2022-08-07 00:16 | NUR ---
DISCUSSION WITH DR CASTILLO REGARDING PTS CONT ANXIETY AND RESTLESSNESS . ORDER GIVEN FOR TRAZADONE 50MG PO ONCE TIME.
--- NOTE | 2022-08-07 00:52 | NUR ---
PT GIVEN TRAZADONE AND MORE PRN ATIVAN.
--- NOTE | 2022-08-07 08:24 | NUR ---
PT RESTING IN BED, BREAKFAST BROUGHT IN TO ROOM. NS FLUID D/C'D. PT STARTED ON D5 03/30 NS WITH 20K @ 75ML/HR. CALL LIGHT WITHIN REACH, BEDRAILS UP FOR SAFETY. PT INFORMED ONCE BREAKFAST IS FINISHED, RN WILL COMPLETE MORNING ASSESSMENT. PT VERBALIZED UNDERSTANDING.
--- NOTE | 2022-08-07 09:16 | NUR ---
MORNING ASSESSMENT COMPLETED, MEDICATION PROVIDED. PT LUNG SOUNDS CLEAR IN UPPER QUADRANTS AND DIMINISHED IN LOWER. ACTIVE BOWEL TONES, AND HEART SOUNDS STRONG, SINUS RHYTHM. PT ALERT AND ORIENTED X3, BUT VERY ANXIOUS, ASKING ABOUT TALKING TO FAMILY, ASKING IF SHE WILL BE OKAY. PT ASSISTED TO BEDSIDE COMMODE WITH 1PA AND BEDBATH PROVIDED. MURO CATHETER REMOVED. PT HAS BRUISING SCATTERED ON BOTH PPER EXTREMITIES, BRUISE ON RIGHT SIDE OF UPPER BACK, AND BRUISE AND SCRATCH ON RIGHT EYE. PT PERRLA, CMS INACT IN UPPER AND LOWER EXTREMITIES WITH CAP REFILL LESS THAN 3 SECONDS WITH ACTIVE ROM. PT REQUESTING TO CALL HER STEP FATHER AND HAVE DIET ADVANCED.
--- NOTE | 2022-08-07 10:22 | NUR ---
PT TITRATED TO ROOM AIR, TOLERATING WELL. PT 02 SATURATION 97% ON ROOM AIR.PT MOTHER AT BEDSIDE TALKING WITH PT. PT ADVANCED DIET MEAL BROUGHT TO ROOM AND PT EATING CHICKEN NOODLE SOUP.
--- NOTE | 2022-08-07 10:31 | NUR ---
PT ASSISTED TO BEDSIDE COMMODE AND BACK TO BED WITH 1PA FOR VOID/STOL. PT TOLERATED WELL. PT COMPLAINT OF WEAKNESS WITH MOVEMENT BUT PT ENCOURAGED TO STEP TO MOVE TO BEDSIDE COMMODE. PT GIVEN GELATO ICE PER REQUEST. NO FURTHER NEEDS AT THIS TIME. NEW BRIEF PLACED ON PT.
--- NOTE | 2022-08-07 12:32 | NUR ---
PT USED CALL LIGHT APPROPRIATELY, CALLING TO ASK FOR ASSISTANCE TO COMMODE. PT ASSISTED TO BEDSIDE COMMODE AND BACK TO BED WITH 1PA. PT VOIDED. PT COMPLAINT OF TENDERNESS WITH WIPING, CREAM APPLIED TO PERINEUM AND RECTUM. PT DENIES FURTHER NEEDS AT THIS TIME.PT EATING LUNCH IN BED WITH CALL LIGHT WITHIN REACH AND BEDRAIL UP FOR SAFETY.
--- NOTE | 2022-08-07 13:00 | NUR ---
Notified by staff, pts father is in and would like to speak with me. To [facility] and he is in their waiting room. In and spoke with Sundeep. He wants to know what will happen with July. He states both her and his visited today and the is upset with July for the way she is acting. I asked Sundeep if they recognize that July is an alcoholic. He states they are aware of this. He states she is messing up at work and for the past year has started drinking too much and then misses one to two days of work. She is unable to get up and go to work. He is concerned she has "messed up her job". Let him know I have requested [place] papers from [place] for July to complete. We discussed July has requested placement to rehab on discharge. She is not well enough to go to a rehab at this time. Rehabs require pts to be independent and able to participate in their programs. July at this time is disoriented and yelling out at times. [facility] did see her last night and discussed rehab. They are working on placement on dc. They state this is complicated due to pts insurance. They will have more info on Wednesday. I called and spoke with Jessica from [facility]. She suggested I give the dad info on [facility] in our area.
--- NOTE | 2022-08-07 13:15 | NUR ---
REPORT RECEIVED, ASSUMING PRIMARY CARE. PT SITTING UP IN BED VOMITTING, REPORTS ANXIETY DESPITE PREVIOUS ATIVAN DOSE 20 MIN AGO. CIWA CURRENTLY 12. PRNS TO BE ADMINISTERED. CALL LIGHT IN REACH. BED ALARM ON.
--- NOTE | 2022-08-07 14:07 | NUR ---
pt resting in bed, case managment and father just leaving from visit. pt requesting more liquids and ice freeze to eat despite nausea and vomiting. call light in reach.
--- NOTE | 2022-08-07 15:31 | NUR ---
pt uses call light to report need to urinate. up to bsc with 1 person assist, impulsive and not following commads. voided 25ml. pt then to chair per request. hot tea provided. ciwa score 12, prn ativan administered.
--- NOTE | 2022-08-07 17:01 | NUR ---
RN ROUNDING ON PT - ASLEEP IN CHAIR, WAKES EASILY WITH VOICE. DINNER PROVIDED. ABLE TO FEED SELF. INC OF URINE IN ATTENDS, CHANGED.
--- NOTE | 2022-08-07 17:33 | NUR ---
PT BACK TO BED FROM CHAIR 1 PERSON ASSIST.
--- NOTE | 2022-08-07 19:15 | NUR ---
PT CALLED TO REPORT THAT SHE HAD SOILED HER BOTTOMS, PT ASSISTED TO CHANGE AND CLEAN UP OF LARGE URINE INCONT. PT ASKED FOR JELLO, PROVIDED, SHE REPORTS NO NAUSEA.
--- NOTE | 2022-08-07 20:15 | NUR ---
PT CALLED TO REPORT SHE HAD "SOILED HER BOTTOMS AGAIN" PT CHANGED AND CLEANED. SHE ASKED FOR SODA, GALO SPRITE TYPE SODA PROVIDED. PT SAID "IM GETTING BORED"
--- NOTE | 2022-08-07 21:15 | NUR ---
PT UP TO BEDSIDE COMMDE VERY SKACKY AND UNSTABLE.
--- NOTE | 2022-08-07 22:30 | NUR ---
PT ON BEDPAN AT THIS TIME, SHE HAS A CIWA OF 12 AND IS ADMINISTERED 1MG IV ATIVAN PRN AT THIS TIME
--- NOTE | 2022-08-07 23:10 | NUR ---
PT CIWA 10, SHE CONTINUES TO BE VERY RESTLESS, AGITATED, FIXATED, ANXIOUS. 1MG IV ATIVAN PRN ADMINISTERED
[2022-08-08] VITALS (11 sets, daily range): BP systolic 120–154; BP diastolic 62–96
--- NOTE | 2022-08-08 01:17 | NUR ---
CIWA 10, PT ADMINISTERED 1MG IV ATIVAN AT THIS TIME.
--- NOTE | 2022-08-08 03:58 | NUR ---
PT CALLED NURSES STATION, SHE SAID "I HAD AN ACCIDENT" PT HAD INCONT OF URINE, FULL BED LINEN CHANGE AND GOWN, PT ALSO THEN FURTHER VOIDED IN BED CHANDRA. SHE IS ANXIOUS/RESTLESS AT THIS TIME, MONITOR FOR CIWA
--- NOTE | 2022-08-08 04:29 | NUR ---
pt called to use bedpan, voided 200ml and incont on white incont pad.
--- NOTE | 2022-08-08 10:47 | NUR ---
PT REPORTS THAT FAMILY BROUGHT HER THE NEWS THAT HER SISTER [place] LAST NIGHT. REQUESTS TO SPEAK WITH SPIRITUAL CARE. MOM AND DAD REMAIN AT BEDSIDE. [facility] SPIRITUAL CARE TO ARRIVE IN A COUPLE OF HOURS.
--- NOTE | 2022-08-08 13:32 | NUR ---
PT ASSESSMENT COMPLETED. PT CIWA SCORE 3. ASSISTED UP TO BEDSIDE COMMODE. CALL LIGHT WITHIN REACH.
--- NOTE | 2022-08-08 14:17 | NUR ---
CODIE JONES INFORMED ME THAT PT HAD JUST LEARNED THAT HER SISTER HAD SUDDENLY AND PT WAS REQUESTING A PRESIDENT CELEBRITY ACQUISTION CARE VISIT. PT WAS IN BED SITTING UP WHEN I ENTERED ROOM. PT EXPRESSED SHOCK AND GRIEF AT THE SUDDEN . SHARED ABOUT SISTER'S ONGOING ILLNESS. VIKVES SISTER IS AT [facility]. ACCEPTED MY OFFER OF PRAYER. WE TALKED OF GRIEF AND LOSS. STATED THAT HER PRIMARY EMOTIONAL SUPPORT IS HER MOTHER. SHARED THAT HER GRANDFATER HAD EARLIER THIS YEAR AND THAT HER FATHER HAS CANCER. STATED, "IT'S BEEN A ROUGH YEAR." EXERCISED LISTENING MINISTRY SHE TALKED OF HER LOSSES AND HER FEELINGS ABOUT THAT. PROVIDED PRAYER SHAWL AND A COPY OF "UNDERSTANDING YOUR GRIEF" BOOK. PROVIDED INFORMATION ABOUT [facility].
--- NOTE | 2022-08-08 17:00 | NUR ---
PT ASSESSMENT COMPLETED. PT IS A/O, RESPRIATIONS EVEN AND REGULAR. CALL LIGHT WITHIN REACH.
--- NOTE | 2022-08-08 19:24 | NUR ---
SHIFT REPORT FROM MELANIA RN, ROUNDED ON PT, SHE IS RESTING IN BED EYES CLOSED RESP RATE 20/MIN NO DISTRESS NOTED.
--- NOTE | 2022-08-08 20:00 | NUR ---
ROUNDED ON PT, SHE REPORTS SHE NEEDS TO USE THE BATHROOM, PT ONE PERSON ASSIST TO BATHROOM WITH FWW, PT TOLERATED ACTIVITY WELL, NOT MILD TREMOR OF BLE, BUE, SHE HAS STEADY GAIT WITH GOOD STRENGTH. PT WAS INCONT WHILE AMBULATING, SHE SAID "I JUST COULDNT HOLD IT" PT HAS DEPENDS ON ALSO HAD SMALL VOID IN TOILET WELL AND SMALL BM. SHE IS MORE ORIENTED TONIGHT COMPARED TO LAST NIGHT, MENTATION IS CLEAR COMMUNICATING APPROPRIATE, DISCUSSED PLAN OF CARE FOR TONIGHT, PT PROVIDED CRYSTAL LIGHT IN BOTTLE WATER OVER ICE, SHE THANKED THIS RN FOR ALL CARES. SHE ALSO ASKED "DID YOU HEAR ABOUT MY SISTER?" THIS RN SAID "YES, I DID RECEIVE THAT VERY SAID NEWS, I AM SO VERY SORRY TO HEAR THAT SAID NEWS" PT SAID SHE CHRONIC ILLNESS AND THAT SHE LIVED NEXT DOORTO HER WITH HER PARENTS.
--- NOTE | 2022-08-08 21:24 | NUR ---
PT UP TO BATHROOM TO VOID, SHE HAD INCONT PRIOR TO NOTIFY RN, PT NEGATIVE FOR UTI PER URINE LABS TODAY, POST RESIDUAL BLADDER SCAN DONE TO CHECK FOR RETENTION, TWO SCANS PERFORMED FIRST 13ML, SECOND 18ML, NOT A CONCERN AT THIS TIME.
--- NOTE | 2022-08-08 22:34 | NUR ---
pt up to bathroom, made it to toilet and then started urinating before sat down, pt back to bed new attends, tv set to hx channel per her request, no other requests or concerns at this time
--- NOTE | 2022-08-08 23:29 | NUR ---
PT UP TO VOID, 100ML AND INCONT SMALL. WARM BLANKET PROVIDED, NO NEW CONCERNS AT THIS TIME
--- NOTE | 2022-08-09 00:41 | NUR ---
PT CALLED TO REPORT NEED TO VOID. PT ASKED IF SHE COULD USE THE BED SHE IS GETTING TIRED, BED CHANDRA PROVIDED, PT UNABLE TO VOID ON BED CHANDRA, BEDSIDE COMMODE PROVIDED, PT UP VOIDED 100ML CLEAR YELLOW URINE. PT REPORTS HER LEGS AND BACK ARE SORE, 500 MG PO TYLENOL PROVIDED PRN AT THIS TIME. PT HAS NO OTHER CONCERNS OR REQUESTS
--- NOTE | 2022-08-09 03:22 | NUR ---
pt up to bedside commode, no report of pain or nausea. no new concerns ciwa 3
[2022-08-09 04:25] VITALS: BP 156/97
[2022-08-09 07:00] VITALS: BP 147/89
[2022-08-09 08:00] VITALS: BP 138/91
--- NOTE | 2022-08-09 08:07 | NUR ---
PT ASSESSED AND FOUND TO BE LAYING IN HOSPITAL BED SLEEPING. PT AWAKENS EASY, IS ALERT AND ORIENTED X 3 WITH NOTED CONFUSION WITH TODAYS DATE. PT FOLLOWS COMMANDS APPROPRIATELY. PT DENIES ANY PAIN, BUT STATES SHE IS EXPERIENCING SOME GENERALIZED DISCOMFORT. PT REPOSITIONED. V/S AND PIV'S ASSESSED. ALARM PERAMETERS CHECKED. PT WITH CIWA SCORE OF 1. PT WITH NO QUESTIONS OR CONCERNS AT THIS TIME. PT PROVIDED WITH BREAKFAST. CALL LIGHT AT BEDSIDE.
--- NOTE | 2022-08-09 09:45 | NUR ---
PT UP WITH PT. PT AMBULATING WITH WALKER.
--- NOTE | 2022-08-09 10:22 | NUR ---
PT BACK TO BED, NURSE CALL LIGHT PLACED ON PTS SIDE. PT WITH NO COMPLAINTS AT THIS TIME. PT STATES SHE FELT WEAK AND HOT WHILE WALKING. PT DENIES SOB, DIZZINESS OR CP.
[2022-08-09 11:00] VITALS: BP 130/112
--- NOTE | 2022-08-09 12:30 | NUR ---
PT BEING TRANSFERRED TO RM 108. FULL RN REPORT PROVIDED TO TONYA MACKAY. PT WITH NO QUESTIONS OR CONCERNS AT THIS TIME. PT TRANSFERRED TO CHAIR BY SELF AND WHEELED TO RM 108. ALL OF PT'S PERSONAL BELONGINGS TRANSFERRED TO NEW RM.
--- NOTE | 2022-08-09 12:42 | NUR ---
PT TO MED-SURG VIA RECLINER CHAIR, NOON MEAL SERVED. CALL LIGHT AND NEEDED ITEMS IN REACH.
--- NOTE | 2022-08-09 13:48 | NUR ---
PT CALM AND COOPERATIVE RESTING IN BED AT THIS TIME. DENIES DISCOMFORTS OR NEEDS OF.
--- NOTE | 2022-08-09 14:15 | NUR ---
PT PARENTS IN TO SEE HER
--- NOTE | 2022-08-09 15:41 | NUR ---
PT RESTING IN BED HAS BEEN UP INDEPENDANTLY TO THE RESTROOM. FAMILY WERE HERE FOR QUITE SOME TIME. PT DENIES DISCOMFORTS OR NEEDS OF.
--- NOTE | 2022-08-09 16:19 | NUR ---
medications reconciled
[2022-08-09 17:09] VITALS: BP 143/96
--- NOTE | 2022-08-09 17:16 | NUR ---
PT AMBULATES A LAP IN THE [place] RETURNS TO ROOM REFUSES 2ND LAP. PT TO THE CHAIR EVENING MEAL SEARVED. FRESH H20 AND CALL LIGHT IN REACH. PT DENIES OTHER NEEDS
--- NOTE | 2022-08-09 18:37 | NUR ---
PT CALLS APPROPRIATELY FOR SBA TO THE BATHROOM. DOES PERSONAL CARES THEN RETURNS TO REST IN BED. DENIES PAIN, DISCOMFORTS, OR NEEDS OF.
--- NOTE | 2022-08-09 19:41 | NUR ---
pt RESTING IN BED AWAKE, WATCHING TV. SLIGHT TREMOR NOTED WHEN LIFTING GARBAGE FOR RN TO THROW AWAY. pt DENIES NEEDS. CALL LIGHT IN REACH.
--- NOTE | 2022-08-09 20:00 | NUR ---
ANSWERED CALL LIGHT. SBA TO BATHROOM AND BACK TO BED USING WALKER. V/S AND I&O'S COMPLETED. PRIMARY RN WAS WITH PATIENT.
[2022-08-09 20:13] VITALS: BP 132/82
--- NOTE | 2022-08-09 20:32 | NUR ---
pt BACK IN BED AFTER AMBULATING TO RESTROOM WITH FWW, STEADY ON FEET. ASSESSMENT COMPLETE. pt ALERT AND ORIENTED TO ALL, DISCUSSING OF SISTER WITH RN, EMOTIONAL. DENIES NEED FOR PRN ANXIETY MEDICATION. DENIES PAIN. IV SITES NOT PATENT, D/C'D WNL. PHONE CALL TO , TELEPHONE ORDER, OKAY FOR NO IV ACCESS. pt PROVIDED WITH CRANBERRY JUICE. CALL LIGHT IN REACH.
--- NOTE | 2022-08-09 21:07 | NUR ---
PT HAD REQUESTED FOOD. SANDWICH BOX PROVIDED. INFORMED HER THAT THE IV WILL NOT BE REPLACED PER PRIMARY RN/DR TIM.
--- NOTE | 2022-08-09 23:29 | NUR ---
PATIENT IS LAYING IN BED ON HER LEFT SIDE FACING THE WINDOW. RR 16bpm.
--- NOTE | 2022-08-10 00:11 | NUR ---
CHECKED ON pt. RESTING IN BED ON RIGHT SIDE, SNORING. BREATHING UNLABORED.
--- NOTE | 2022-08-10 00:39 | NUR ---
PATIENT CALLED NEEDING UNDERWEAR STATED " HAD AN ACCIDENT". FRESH PULL UP AND GOWN PROVIDED. EMPTIED URINE 500ML FROM THE HAT. DENIES FURTHER NEEDS AT THIS TIME.
[2022-08-10 02:50] VITALS: BP 149/87
--- NOTE | 2022-08-10 02:55 | NUR ---
PATIENT CALLED. FRESH PULL UP PROVIDED. EMPTIED HAT WITH 200ML URINE.
--- NOTE | 2022-08-10 02:55 | NUR ---
CALL LIGHT ANSWERED. pt BACK IN BED, NEW ATTENDS PROVIDED BY RAFAEL RIOS, pt DRIBBLING DUE TO URGENCY. ASSESSMENT COMPLETE. NO TREMORS NOTED. pt STATES "I HURT ALL OVER" DENIES NEED FOR PRN PAIN MEDICATION. CRANBERRY JUICE PROVIDED. CALL LIGHT IN REACH.
--- NOTE | 2022-08-10 06:31 | NUR ---
pt RESTING IN BED AWAKE. ASSISTED pt TO ORDER BREAKFAST. pt DOES NOT HAVE "READERS" WITH HER. pt DOES NOT REMEMBER TALKING TO JULIET OR "THAT SANDRA ALEMAN". DISCUSSED PLAN OF CARE, CM TO MEET WITH pt TODAY TO DISCUSS OPTIONS FOR REHAB, SUPPORT GROUPS. pt STATES THAT SHE NEVER WANTS TO DRINK AGAIN. DENIES NEEDS. CALL LIGHT IN REACH.
--- NOTE | 2022-08-10 07:37 | NUR ---
PT SITTING UP IN BED AT TIME OF SHIFT REPORT. ALERT AND COOPERATIVE. DENIES DISCOMFORTS REQUESTS TERRANCE OSWALDO, WAITING FOR BREAKFAST. SHOWER AND PERSONAL CARE ITEMS PROVIDED. PT ENCOURAGED TO CALL FOR ANY NEEDS.
--- NOTE | 2022-08-10 08:03 | NUR ---
PT BACK FROM THE SHOWER, DOES SHOWER AND PERSONAL CARES INDEPENDANTLY. STATES SHE FEELS BETTER BUT SHOWER EXHAUSTED HER. SITTING IN CHAIR NOW WITH MORNING MEAL CALL LIGHT IN REACH DENIES NEEDS OF ANYTHING.
--- NOTE | 2022-08-10 08:55 | NUR ---
ASSESSMENT COMPLETE, NEURO CHECKS UNREMARKABLE. ASKED HOW SHE FEELS COMPARED TO NORMAL BASELINE PT STATES "I FEEL LIKE A DING BAT, JUST KIND OF OFF A LITTLE, OR FOGGY" PT CONTINUES TO USE A WALKER FOR ADDED STABILTY BUT APPEARS STEADY ON HER FEET, SAYS SHE'S JUST A LITTLE WEAK. REMARKS SHOWER THIS A.M. "WIPED ME OUT" TOELRATES MOST ALL OF MORNING MEAL UP IN THE CHAIR RETURNS TO BED AT THIS TIME TO REST. CALL LIGHT IN REACH, DENIES NEED OF ANYTHING ELSE.
[2022-08-10 09:21] VITALS: BP 130/73
--- NOTE | 2022-08-10 09:51 | NUR ---
PT PASSES LARGE SOFT BM NO SIGNS OR ODOR OF C-DIFF. SAMPLE SENT TO LAB DUE TO ORDER FROM YESTERDAY. PT CONTINUES WITHOUT REQUEST OR C/O
--- NOTE | 2022-08-10 10:00 | NUR ---
Spoke with Desi. She is much more alert today. We discussed placement to a rehab and pt still desires this. We discussed concern of high rate of returning to drinking when pts dc and don't go directly to a rehab. Desi states she justs wants to go into a rehab. Let her know I will call JULIET. Returned to my office and JULIET. Spoke with Rashid and he states he will be here in the next hour.
--- NOTE | 2022-08-10 10:27 | NUR ---
PT RESTING IN BED AFTER VISIT WITH DC DIRECTOR OF CAPITAL GIVING. AGREES ALL HER QUESTIONS WERE ANSWERED DENIES NEEDS
--- NOTE | 2022-08-10 10:55 | NUR ---
PATIENT TOOK A SHOWER AROUND EIGHT AM THIS MORNING. AFTER SHE WAS DONE SHE SET UP IN HER CHAIR FOR BREAKFAST. CHANGED BED LINENS. PICKED UP ALL THE TOWELS IN THE SHOWER AND DRIED THE FLOOR. THAN WHEN I WENT BACK IN TO DO HER VITALS PATIENT WAS IN BED.
--- NOTE | 2022-08-10 11:17 | NUR ---
Spoke with Rashid liriano [facility]. He states they will work on placement for rehab for Desi. This may take a few days, they will do intensive counseling and contact with this pt until she is able to be placed. One of the counselors will complete an assessment today to determine what this pt needs. He states pt can be discharged to home and they will remain in contact with her. He asks if she may stay one more day. I will update Dr. Hernandez.
--- NOTE | 2022-08-10 11:34 | NUR ---
PT UP INDEPENDANTLY IN THE ROOM STATES SHE IS CONCERNED ABOUT FMLA CLAIM. PT REASSURED DC IC DESIGN ENGINEER IS IN CONTACT WITH HER JOB TO REQUEST APPROPRIATE PAPERWORK. EMAIL FOR DC IC DESIGN ENGINEER PROVIDED TO PT PER HER REQUEST. PT DENIES DISCOMFORTS AT THIS TIME. NO TREMOR, AGITATION, OR OTHER S/S PRESENT.
[2022-08-10 13:35] VITALS: BP 121/74
--- NOTE | 2022-08-10 13:40 | NUR ---
PT CONTINUES TO BE UP IN HER ROOM INDEPENDANTLY. PARENTS HAVE BEEN HERE TO VISIT ARE BRINGING HER READING GLASSES AND NEEDED ITEMS. PT DENIES NEEDS FROM THIS POUNCER.
--- NOTE | 2022-08-10 14:55 | NUR ---
PT SITTING UP IN BED VISITING WITH PARENTS, HAS QUESTIONS ABOUT HOME MEDICATIONS. PHARMACY CONTACTED AND SPEAKING TO HER NOW
[2022-08-10 17:55] VITALS: BP 114/97
--- NOTE | 2022-08-10 18:24 | NUR ---
PT TOLERATES EVENING MEAL CONTINUES SELF CARE IN ROOM INDEPENDANTLY. NO TREMORS OR C/O DISCOMFORTS, ANTICIPATES DC TOMORROW.
--- NOTE | 2022-08-10 19:18 | NUR ---
REPORT RECEIVED FROM CODIE GUNTER. pt RESTING IN BED AWAKE, WATCHING TV. CRANBERRY JUICE AND ORANGE JUICE PROVIDED. CALL LIGHT IN REACH.
[2022-08-10 20:56] VITALS: BP 137/74
--- NOTE | 2022-08-10 21:13 | NUR ---
pt RESTING IN BED WATCHING LIFETIME MOVIE. VSS. ASSESSMENT COMPLETE. URINE HAT EMPTIED. NO BMS THIS SHIFT. PO SNACK AND FLUIDS PROVIDED. CALL LIGHT IN REACH.
--- NOTE | 2022-08-10 23:21 | NUR ---
ADMISSION CHECK IN COMPLETE BY CODIE EDDY. IVF INFUSING WNL. ADMISSION ASSESSMENT COMPLETE. SOAP SUDS ENEMA COMPLETE. pt RESTING ON LEFT SIDE IN BED. CALL LIGHT IN REACH, VERBALIZES UNDERSTANDING TO USE CALL LIGHT WHEN FINISHED.
--- NOTE | 2022-08-11 00:05 | NUR ---
CHECKED ON pt. RESTING IN BED AWAKE. URINE HAT DUMPED. pt DENIES NEEDS. CALL LIGHT IN REACH.
[2022-08-11 06:11] VITALS: BP 143/80
--- NOTE | 2022-08-11 06:17 | NUR ---
CALL LIGHT ANSWERED. NEW ATTENDS PROVIDED, pt WITH SOME DRIBBLING OF URINE IN ATTENDS. URINE HAT EMPTIED. ASSESSMENT COMPLETE. VSS. BREAKFAST ORDER PLACED. JUICE PROVIDED. CALL LIGHT IN REACH.
--- NOTE | 2022-08-11 07:24 | NUR ---
RECEIVED REPORT FROM [facility] NURSE. PT APPEARS TO BE SLEEPING COMFORTABLY. RESPIRATIONS EVEN AND REGULAR.
--- NOTE | 2022-08-11 07:56 | NUR ---
MEDICATION ADMINISTRATION AND ASSESSMENT COMPLETED. PT IS A/O, RESPIRATIONS EVEN AND REGULAR. STATES SHE IS HAVING SOME ANXIETY RE DC. CALL LIGHT WITHIN REACH.
[2022-08-11 08:36] VITALS: BP 127/74
--- NOTE | 2022-08-11 08:36 | NUR ---
pt resting in bed, vitals and is and os complete. pt has no needs. call light within reach.
--- NOTE | 2022-08-11 10:05 | NUR ---
SPOKE TO PATIENT ABOUT THE DISCHARGE PLAN. PATIENT PLANS TO GO HOME WITH HER SON AND FOLLOW UP WITH JULIET TODAY. PATIENT HAD A IN THE FAMILY AND NEEDS TO ATTEND THE SERVICES ON WEDNESDAY THIS WEEK. PATIENT WOULD LIKE TO GO TO INPATIENT SUBSTANCE ABUSE TREATMENT. MARC RONDON JULIET IS PLANNING ON MAKING ARRANEMENTS FOR PLACEMENT AND WILL MEET WITH PATIENT THIS AFTERNOON.
--- NOTE | 2022-08-11 12:15 | NUR ---
DC PAPER WORK AND EDUCATION COMPLETED WITH PT. PT IS WAITING FOR SON TO ARRIVE AROUND 1500.
[2022-08-11] MEDS ORDERED: DAYPRO600 MG PO (12:32)
[2022-08-11] MEDS ORDERED: B-100 COMPLEX100 MG PO (12:32)
[2022-08-11 13:43] VITALS: BP 127/79
== END 2022-08-11 14:10 | disposition home or self-care (01) | DRG 896 ==
LOC: ED 16:23 → CCU 20:48 → MS 20:48
PROVIDERS: ADMIT Internal Medicine; ATTEND Internal Medicine
PROC: HZ2ZZZZ Detoxification Services for Substance Abuse Treatment (ICD-10-PCS; principal; 2022-08-11)
PROC: 0T9B70Z Drainage of Bladder with Drainage Device, Via Natural or Artificial Opening (ICD-10-PCS; 2022-08-11)
DX: F10.221 Alcohol dependence with intoxication delirium (principal); G93.41 Metabolic encephalopathy; N17.9 Acute kidney failure, unspecified; M62.82 Rhabdomyolysis; F10.231 Alcohol dependence with withdrawal delirium; S06.0X0A Concussion without loss of consciousness, initial encounter; E86.0 Dehydration; R19.7 Diarrhea, unspecified; J45.909 Unspecified asthma, uncomplicated; G89.4 Chronic pain syndrome; F41.8 Other specified anxiety disorders; K21.9 Gastro-esophageal reflux disease without esophagitis; W18.39XA Other fall on same level, initial encounter; Z98.84 Bariatric surgery status; Y90.0 Blood alcohol level of less than 20 mg/100 ml; Z88.0 Allergy status to penicillin; Z88.2 Allergy status to sulfonamides; Z88.1 Allergy status to other antibiotic agents; Z91.018 Allergy to other foods; Z79.899 Other long term (current) drug therapy; Z96.642 Presence of left artificial hip joint; Z87.891 Personal history of nicotine dependence
CPT/HCPCS: 36415; 70450; 72125; 80048; 80053; 81001; 82140; 82553; 83735; 84702; 85025; 87493; 97110; 97116; 97161; 97165; A9270; G0480; J0780; J2060; J2405; J3411; J3480; J7030

== ENCOUNTER 2022-09-30 10:35 | Emergency (ER) | payer OTHER ==
[~2022-09-30] VITALS: Ht 165.1 cm; Wt 91.2 kg
--- OUTSIDE RECORDS SUMMARY | ~2022-09-30 | XMS | Continuity of Care Document ---
Demographics + + + | Address | [address] | | | [place] [address] | + + + | Preferred Language | Unknown | + + + | Marital Status | | + + + | Presybeterian Affiliation | Unknown | + + + | Race | White | + + + | Ethnic Group | Not or | + + + Author + + + | Author | [place] | + + + | Organization | [place] | + + + | Address | [address] | | | [place] [address] | + + + | Phone | | + + + Care Team Providers + + + + | Care Sales Management Intern Name | Role | Phone | + + + + Unavailable | Unavailable | + + + + Unavailable | Unavailable | + + + + Unavailable | Unavailable | + + + + Allergies and Intolerances + + + + + | date | description | facility | type | + + + + + | (no date) | Mild | [facility] (unknown) [facility] | | + + + + + | (no date) | Erythromycin base | [facility] | (unknown) | | | | [facility] | | + + + + + | (no date) | Anaphylaxis | [facility] | (unknown) | | | | Hospital | | + + + + + | (no date) | Itching | [facility] | (unknown) | | | [facility] Hospital | | + + + + + | (no date) | Penicillin | [facility] | (unknown) | | | [facility] Hospital | | + + + + + | (no date) | Penicillin | [facility] | (unknown) | | | [facility] Hospital | | + + + + + | (no date) | Erythromycin base | [facility] | (unknown) | | | | Hospital | | + + + + + | (no date) | Penicillin | [facility] | (unknown) | | | | Hospital | | + + + + + | (no date) | Penicillin | [facility] | (unknown) | | | | Hospital | | + + + + + Encounters No information. Functional Status No information. Immunizations No information. Medications + + + + | date | description | facility | + + + + | 2022-08-11 00:00 | ESTROGEN,CON/M-PROGEST | [facility] | | | ACET | | + + + + | 2021-10-23 00:00 | CETIRIZINE HCL | [facility] | + + + + | 2021-11-21 00:00 | CETIRIZINE HCL | [facility] | + + + + | 2021-12-18 00:00 | CETIRIZINE HCL | [facility] | + + + + | 2022-03-27 00:00 | CETIRIZINE HCL | [facility] | + + + + | 2022-05-26 00:00 | CETIRIZINE HCL | [facility] | + + + + | 2022-08-11 00:00 | CETIRIZINE HCL | [facility] | + + + + | 2021-10-23 00:00 | MUPIROCIN | [facility] | + + + + | 2021-11-21 00:00 | MUPIROCIN | [facility] | + + + + | 2021-12-18 00:00 | MUPIROCIN | [facility] | + + + + | 2022-03-27 00:00 | MUPIROCIN | [facility] | + + + + | 2022-05-26 00:00 | MUPIROCIN | [facility] | + + + + | 2022-08-11 00:00 | MUPIROCIN | [facility] | + + + + | 2017-06-02 00:00 | RIVAROXABAN | [facility] | + + + + | 2021-10-23 00:00 | FLUTICASONE PROPIONATE | [facility] | + + + + | 2021-11-21 00:00 | FLUTICASONE PROPIONATE | [facility] | + + + + | 2021-12-18 00:00 | FLUTICASONE PROPIONATE | [facility] | + + + + | 2022-03-27 00:00 | FLUTICASONE PROPIONATE | [facility] | + + + + | 2022-05-26 00:00 | FLUTICASONE PROPIONATE | [facility] | + + + + | 2022-08-11 00:00 | FLUTICASONE PROPIONATE | [facility] | + + + + | 2021-10-23 00:00 | ACETAMINOPHEN | [facility] | + + + + | 2021-11-21 00:00 | ACETAMINOPHEN | [facility] | + + + + | 2021-12-18 00:00 | ACETAMINOPHEN | [facility] | + + + + | 2022-03-27 00:00 | ACETAMINOPHEN | [facility] | + + + + | 2022-05-26 00:00 | ACETAMINOPHEN | [facility] | + + + + | 2022-08-11 00:00 | ACETAMINOPHEN | [facility] | + + + + | 2021-10-23 00:00 | ASCORBIC ACID | [facility] | + + + + | 2021-11-21 00:00 | ASCORBIC ACID | [facility] | + + + + | 2021-12-18 00:00 | ASCORBIC ACID | [facility] | + + + + | 2022-03-27 00:00 | ASCORBIC ACID | [facility] | + + + + | 2022-05-26 00:00 | ASCORBIC ACID | [facility] | + + + + | 2022-08-11 00:00 | ASCORBIC ACID | [facility] | + + + + | 2021-12-18 00:00 | LORAZEPAM | [facility] | + + + + | 2021-10-23 00:00 | OXAPROZIN | [facility] | + + + + | 2021-11-21 00:00 | OXAPROZIN | [facility] | + + + + | 2021-12-18 00:00 | OXAPROZIN | [facility] | + + + + | 2022-03-27 00:00 | OXAPROZIN | [facility] | + + + + | 2022-05-26 00:00 | OXAPROZIN | [facility] | + + + + | 2022-08-11 00:00 | OXAPROZIN | [facility] | + + + + | 2021-10-23 00:00 | FERROUS SULFATE | [facility] | + + + + | 2021-11-21 00:00 | FERROUS SULFATE | [facility] | + + + + | 2021-12-18 00:00 | FERROUS SULFATE | [facility] | + + + + | 2022-03-27 00:00 | FERROUS SULFATE | [facility] | + + + + | 2022-05-26 00:00 | FERROUS SULFATE | [facility] | + + + + | 2022-08-11 00:00 | FERROUS SULFATE | [facility] | + + + + | 2022-03-25 00:00 | FOLIC ACID | [facility] | + + + + | 2020-12-27 00:00 | ONDANSETRON | [facility] | + + + + | 2021-12-18 00:00 | ONDANSETRON | [facility] | + + + + | 2022-03-25 00:00 | THIAMINE HCL | [facility] | + + + + | 2021-10-23 00:00 | OMEPRAZOLE | [facility] | + + + + | 2021-11-21 00:00 | OMEPRAZOLE | [facility] | + + + + | 2021-12-18 00:00 | OMEPRAZOLE | [facility] | + + + + | 2022-03-27 00:00 | OMEPRAZOLE | [facility] | + + + + | 2022-05-26 00:00 | OMEPRAZOLE | [facility] | + + + + | 2022-08-11 00:00 | OMEPRAZOLE | [facility] | + + + + | 2022-08-11 00:00 | DULOXETINE HCL | [facility] | + + + + | 2021-10-23 00:00 | DULOXETINE HCL | [facility] | + + + + | 2021-11-21 00:00 | DULOXETINE HCL | [facility] | + + + + | 2021-12-18 00:00 | DULOXETINE HCL | [facility] | + + + + | 2022-03-27 00:00 | DULOXETINE HCL | [facility] | + + + + | 2022-05-26 00:00 | DULOXETINE HCL | [facility] | + + + + | 2022-08-11 00:00 | DULOXETINE HCL | [facility] | + + + + | 2021-10-23 00:00 | MOMETASONE FUROATE | [facility] | + + + + | 2021-11-21 00:00 | MOMETASONE FUROATE | [facility] | + + + + | 2021-12-18 00:00 | MOMETASONE FUROATE | [facility] | + + + + | 2022-03-27 00:00 | MOMETASONE FUROATE | [facility] | + + + + | 2022-05-26 00:00 | MOMETASONE FUROATE | [facility] | + + + + | 2022-08-11 00:00 | MOMETASONE FUROATE | [facility] | + + + + | 2021-10-23 00:00 | TRAMADOL HCL | [facility] | + + + + | 2021-11-21 00:00 | TRAMADOL HCL | [facility] | + + + + | 2021-12-18 00:00 | TRAMADOL HCL | [facility] | + + + + | 2022-03-27 00:00 | TRAMADOL HCL | [facility] | + + + + | 2022-05-26 00:00 | TRAMADOL HCL | [facility] | + + + + | 2022-08-11 00:00 | TRAMADOL HCL | [facility] | + + + + | 2017-06-02 00:00 | TAPENTADOL HCL | [facility] | + + + + | 2017-06-02 00:00 | TAPENTADOL HCL | [facility] | + + + + | 2017-06-02 00:00 | HYDROCODONE | [facility] | | | BIT/ACETAMINOPHEN | | + + + + | 2017-06-02 00:00 | HYDROCODONE | [facility] | | | BIT/ACETAMINOPHEN | | + + + + | 2021-10-23 00:00 | PRAMIPEXOLE DI-HCL | [facility] | + + + + | 2021-11-21 00:00 | PRAMIPEXOLE DI-HCL | [facility] | + + + + | 2021-12-18 00:00 | PRAMIPEXOLE DI-HCL | [facility] | + + + + | 2022-03-27 00:00 | PRAMIPEXOLE DI-HCL | [facility] | + + + + | 2022-05-26 00:00 | PRAMIPEXOLE DI-HCL | [facility] | + + + + | 2022-08-11 00:00 | PRAMIPEXOLE DI-HCL | [facility] | + + + + | 2022-03-25 00:00 | CHLORDIAZEPOXIDE HCL | [facility] | + + + + | 2022-05-26 00:00 | CHLORDIAZEPOXIDE HCL | [facility] | + + + + | 2021-10-23 00:00 | buPROPion HCL | [facility] | + + + + Problems + + + + | date | description | facility | + + + + | 2020-12-27 00:00 | Acute gastroenteritis | [facility] | + + + + | 2020-12-27 00:00 | Acute gastroenteritis | [facility] | + + + + | 2021-10-23 00:00 | Patient left without being | [facility] | | | seen | | + + + + | 2021-10-23 00:00 | Patient left without being | [facility] | | | seen | | + + + + | 2021-11-18 00:00 | Sepsis | [facility] | + + + + | 2021-11-18 00:00 | Sepsis | [facility] | + + + + | 2021-11-18 00:00 | Hypomagnesemia | [facility] | + + + + | 2021-11-18 00:00 | Hypomagnesemia | [facility] | + + + + | 2021-11-18 00:00 | Dehydration | [facility] | + + + + | 2021-11-18 00:00 | Dehydration | [facility] | + + + + | 2021-11-18 00:00 | Lactic acidosis | [facility] | + + + + | 2021-11-18 00:00 | Lactic acidosis | [facility] | + + + + | 2021-11-18 00:00 | Asthma | [facility] | + + + + | 2021-11-18 00:00 | Asthma | [facility] | + + + + | 2021-11-18 00:00 | Acute kidney injury | [facility] | + + + + | 2021-11-18 00:00 | Acute kidney injury | [facility] | + + + + | 2021-11-18 00:00 | Nausea and vomiting | [facility] | + + + + | 2021-11-18 00:00 | Nausea and vomiting | [facility] | + + + + | 2021-11-18 00:00 | Diarrhea | [facility] | + + + + | 2021-11-18 00:00 | Diarrhea | [facility] | + + + + | 2021-11-18 00:00 | High blood lactic acid | [facility] | | | level | | + + + + | 2021-11-18 00:00 | High blood lactic acid | [facility] | | | level | | + + + + | 2021-11-18 00:00 | Infection due to severe | [facility] | | | acute respiratory syndrome | | | | coronavirus 2 (SARS-CoV-2) | | + + + + | 2021-11-18 00:00 | Infection due to severe | [facility] | | | acute respiratory syndrome | | | | coronavirus 2 (SARS-CoV-2) | | + + + + | 2022-03-25 00:00 | Alcohol abuse | [facility] | + + + + | 2022-03-25 00:00 | Alcohol abuse | [facility] | + + + + | 2022-03-25 00:00 | Alcohol abuse with | [facility] | | | withdrawal without | | | | complication | | + + + + | 2022-03-25 00:00 | Alcohol abuse with | [facility] | | | withdrawal without | | | | complication | | + + + + | 2022-05-26 00:00 | Viral infection | [facility] | + + + + | 2022-05-26 00:00 | Viral infection | [facility] | + + + + | 2022-08-05 00:00 | Concussion | [facility] | + + + + Procedures + + + + | date | description | facility | + + + + | 2021-11-18 00:00 | INTRODUCTION OF | [facility] | | | ANTI-INFLAM INTO PERIPH | | | | VEIN, PERC APPROACH | | + + + + | 2021-11-18 00:00 | MONITORING OF ARTERIAL | [facility] | | | SATURATION, PERIPHERAL, | | | | PERC APPROACH | | + + + + | 2021-11-18 00:00 | ISOLATION | [facility] | + + + + | 2021-11-18 00:00 | INTRODUCE REMDESIVIR IN | [facility] | | | PERIPH VEIN, PERC, NEW TECH | | | | 5 | | + + + + | 2021-11-18 00:00 | RAND SUBRAMANIAN IN | [facility] | | | MICAHH [place]ONE [place], NEW | | | | TECH 6 | | + + + + Results/Labs +--------+--------+ + +---------+--------+ + | test | date | author | facility | value | unit | | | | | | | | | interpreta | | | | | | | | tion | +--------+--------+ + +---------+--------+ + + + | Result panel 1 | + + + + + + +---------+ + + | (unknown) | (no date) | (unknown) | [facility] | (no | (units | (unknown) | | | | | [place] | value) | unknown) | | | | | | [facility] | | | | + + + + +---------+ + + + + | Result panel 2 | + + + + + + +---------+ + + | (unknown) | (no date) | (unknown) | [facility] | (no | (units | (unknown) | | | [facility] value) | [facility]) | | | | [facility] | | | | + + + + +---------+ + + + + | Result panel 3 | + + + + + + +---------+ + + | (unknown) | (no date) | (unknown) | [facility] | (no | (units | (unknown) | | | [facility] value) | unknown) | | | | [facility] | | | | + + + + +---------+ + + + + | Result panel 4 | + + + + + + +---------+ + + | (unknown) | (no date) | (unknown) | [facility] | (no | (units | (unknown) | | | | [facility] value) | unknown) | | | | [facility] | | | | + + + + +---------+ + + + + | Result panel 5 | + + + + + + +---------+ + + | (unknown) | (no date) | (unknown) | [facility] | (no | (units | (unknown) | | | | [facility] value) | unknown) | | | | [facility] | | | | + + + + +---------+ + + + + | Result panel 6 | + + + + + + +---------+ + + | (unknown) | (no date) | (unknown) | [facility] | (no | (units | (unknown) | | | | [facility] | value) | unknown) | | | | [facility] | | | | + + + + +---------+ + + + + | Result panel 7 | + + + + + + +---------+ + + | (unknown) | (no date) | (unknown) | [facility] | (no | (units | (unknown) | | | | [facility] value) | unknown) | | | | [facility] | | | | + + + + +---------+ + + + + | Result panel 8 | + + + + + + +---------+ + + | (unknown) | (no date) | (unknown) | [facility] | (no | (units | (unknown) | | | | [facility] value) | [facility]) | | | [facility] | | | | + + + + +---------+ + + + + | Result panel 9 | + + + + + + +---------+ + + | (unknown) | (no date) | (unknown) | [facility] | (no | (units | (unknown) | | | | [facility] value) | [facility]) | | [facility] | | | | + + + + +---------+ + + + + | Result panel 10 | + + + + + + +---------+ + + | (unknown) | (no date) | (unknown) | [facility] | (no | (units | (unknown) | | | | [facility] value) | [facility]) | | [facility] | | | | + + + + +---------+ + + + + | Result panel 11 | + + + + + + +---------+ + + | (unknown) | (no date) | (unknown) | [facility] | (no | (units | (unknown) | | | | [facility]) | [facility]) | | | | [facility] | | | | + + + + +---------+ + + + + | Result panel 12 | + + + + + + +---------+ + + | (unknown) | (no date) | (unknown) | [facility] | (no | (units | (unknown) | | | | [facility] | [facility]) | [facility] | | | | + + + + +---------+ + + + + | Result panel 13 | + + + + + + +---------+ + + | (unknown) | (no date) | (unknown) | [facility] | (no | (units | (unknown) | | | | [facility] | [facility]) | | [facility] | | | | + + + + +---------+ + + + + | Result panel 14 | + + + + + + +---------+ + + | (unknown) | (no date) | (unknown) | [facility] | (no | (units | (unknown) | | | | [facility] | [facility]) | | [facility] | | | | + + + + +---------+ + + + + | Result panel 15 | + + + + + + +---------+ + + | (unknown) | (no date) | (unknown) | [facility] | (no | (units | (unknown) | | | | [facility] | [facility]) | [facility] | | | | + + + + +---------+ + + + + | Result panel 16 | + + + + + + +---------+ + + | (unknown) | (no date) | (unknown) | [facility] | (no | (units | (unknown) | | | | [facility]) | [facility]) | | [facility] | | | | + + + + +---------+ + + + + | Result panel 17 | + + + + + + +---------+ + + | (unknown) | (no date) | (unknown) | [facility] | (no | (units | (unknown) | | | | [facility] | [facility] | [facility] | | | | + + + + +---------+ + + + + | Result panel 18 | + + + + + + +---------+ + + | (unknown) | (no date) | (unknown) | [facility] | (no | (units | (unknown) | | | | [facility] | [facility]) | | | [facility] | | | | + + + + +---------+ + + + + | Result panel 19 | + + + + + + +---------+ + + | (unknown) | (no date) | (unknown) | [facility] | (no | (units | (unknown) | | | | [facility] | [facility]) | [facility] | | | | + + + + +---------+ + + + + | Result panel 20 | + + + + + + +---------+ + + | (unknown) | (no date) | (unknown) | [facility] | (no | (units | (unknown) | | | [facility] | [facility] | [facility] | | | | + + + + +---------+ + + + + | Result panel 21 | + + + + + + +---------+ + + | (unknown) | (no date) | (unknown) | [facility] | (no | (units | (unknown) | | | | [facility] | [facility] | | [facility] | | | | + + + + +---------+ + + + + | Result panel 22 | + + + + + + +---------+ + + | (unknown) | (no date) | (unknown) | [facility] | (no | (units | (unknown) | | | [facility] | [facility] | [facility] | | | | + + + + +---------+ + + + + | Result panel 23 | + + + + + + +---------+ + + | (unknown) | (no date) | (unknown) | [facility] | (no | (units | (unknown) | | | | [facility] | [facility] | [facility] | | | | + + + + +---------+ + + + + | Result panel 24 | + + + + + + +---------+ + + | (unknown) | (no date) | (unknown) | [facility] | (no | (units | (unknown) | | | | [facility] | [facility] | [facility] | | | | + + + + +---------+ + + + + | Result panel 25 | + + + + + + +---------+ + + | (unknown) | (no date) | (unknown) | [facility] | (no | (units | (unknown) | | | | [facility] | [facility] | | | | + + + + +---------+ + + + + | Result panel 26 | + + + + + + +---------+ + + | (unknown) | (no date) | (unknown) | [facility] | (no | (units | (unknown) | | | | [facility] | [facility] | [facility] | [facility] | | | | + + + + +---------+ + + + + | Result panel 27 | + + + + + + +---------+ + + | (unknown) | (no date) | (unknown) | [facility] | (no | (units | (unknown) | | | | [facility] | [facility] | [facility] | | | | + + + + +---------+ + + + + | Result panel 28 | + + + + + + +---------+ + + | (unknown) | (no date) | (unknown) | [facility] | (no | (units | (unknown) | | | | [facility] | [facility] | [facility] | | | | + + + + +---------+ + + + + | Result panel 29 | + + + + + + +---------+ + + | (unknown) | (no date) | (unknown) | [facility] | (no | (units | (unknown) | | | [facility] | [facility] | | | | + + + + +---------+ + + + + | Result panel 30 | + + + + + + +---------+ + + | (unknown) | (no date) | (unknown) | [facility] | (no | (units | (unknown) | | | [facility] | [facility] | [facility] | | | | + + + + +---------+ + + + + | Result panel 31 | + + + + + + +---------+ + + | (unknown) | (no date) | (unknown) | [facility] | (no | (units | (unknown) | | | [facility] | [facility] | | [facility] | | | | + + + + +---------+ + + + + | Result panel 32 | + + + + + + +---------+ + + | (unknown) | (no date) | (unknown) | [facility] | (no | (units | (unknown) | | | [facility] | [facility] | [facility] | | | | + + + + +---------+ + + + + | Result panel 33 | + + + + + + +---------+ + + | (unknown) | (no date) | (unknown) | [facility] | (no | (units | (unknown) | | | | [facility] | [facility] | | | [facility] | | | | + + + + +---------+ + + + + | Result panel 34 | + + + + + + +---------+ + + | (unknown) | (no date) | (unknown) | [facility] | (no | (units | (unknown) | | | [facility] | [facility] | | | | + + + + +---------+ + + + + | Result panel 35 | + + + + + + +---------+ + + | (unknown) | (no date) | (unknown) | [facility] | (no | (units | (unknown) | | | | [facility] | [facility] | [facility] | [facility] | | | | + + + + +---------+ + + + + | Result panel 36 | + + + + + + +---------+ + + | (unknown) | (no date) | (unknown) | [facility] | (no | (units | (unknown) | | | | [facility] | [facility] | | | [facility] | | | | + + + + +---------+ + + + + | Result panel 37 | + + + + + + +---------+ + + | (unknown) | (no date) | (unknown) | [facility] | (no | (units | (unknown) | | | | [facility] | [facility] | | [facility] | | | | + + + + +---------+ + + + + | Result panel 38 | + + + + + + +---------+ + + | (unknown) | (no date) | (unknown) | [facility] | (no | (units | (unknown) | | | | [facility] | [facility] | | [facility] | | | | + + + + +---------+ + + + + | Result panel 39 | + + + + + + +---------+ + + | (unknown) | (no date) | (unknown) | [facility] | (no | (units | (unknown) | | | [facility] | [facility] | [facility] | [facility] | | | | + + + + +---------+ + + + + | Result panel 40 | + + + + + + +---------+ + + | (unknown) | (no date) | (unknown) | [facility] | (no | (units | (unknown) | | | [facility] | [facility] | | [facility] | | | | + + + + +---------+ + + + + | Result panel 41 | + + + + + + +---------+ + + | (unknown) | (no date) | (unknown) | [facility] | (no | (units | (unknown) | | | [facility] | [facility] | [facility] | | | | + + + + +---------+ + + + + | Result panel 42 | + + + + + + +---------+ + + | (unknown) | (no date) | (unknown) | [facility] | (no | (units | (unknown) | | | [facility] | [facility] | | | | + + + + +---------+ + + + + | Result panel 43 | + + + + + + +---------+ + + | (unknown) | (no date) | (unknown) | [facility] | (no | (units | (unknown) | | | [facility] | [facility] | | | | + + + + +---------+ + + + + | Result panel 44 | + + + + + + +---------+ + + | (unknown) | (no date) | (unknown) | [facility] | (no | (units | (unknown) | | | [facility] | [facility] | | | | + + + + +---------+ + + + + | Result panel 45 | + + + + + + +---------+ + + | (unknown) | (no date) | (unknown) | [facility] | (no | (units | (unknown) | | | [facility] | [facility] | [facility] | | | | + + + + +---------+ + + + + | Result panel 46 | + + + + + + +---------+ + + | (unknown) | (no date) | (unknown) | [facility] | (no | (units | (unknown) | | | [facility] | [facility] | | | | + + + + +---------+ + + + + | Result panel 47 | + + + + + + +---------+ + + | (unknown) | (no date) | (unknown) | [facility] | (no | (units | (unknown) | | | [facility] | [facility] | | [facility] | | | | + + + + +---------+ + + + + | Result panel 48 | + + + + + + +---------+ + + | (unknown) | (no date) | (unknown) | [facility] | (no | (units | (unknown) | | | [facility] | [facility] | | [facility] | | | | + + + + +---------+ + + + + | Result panel 49 | + + + + + + +---------+ + + | (unknown) | (no date) | (unknown) | [facility] | (no | (units | (unknown) | | | [facility] | [facility] | [facility] | | | | + + + + +---------+ + + + + | Result panel 50 | + + + + + + +---------+ + + | (unknown) | (no date) | (unknown) | [facility] | (no | (units | (unknown) | | | | | [facility] | value) | unknown) | | | | | | [facility] | | | | + + + + +---------+ + + + + | Result panel 51 | + + + + + + +---------+ + + | (unknown) | (no date) | (unknown) | [facility] | (no | (units | (unknown) | | | | | [facility] | value) | unknown) | | | | | [facility] | | | | + + + + +---------+ + + + + | Result panel 52 | + + + + + + +---------+ + + | (unknown) | (no date) | (unknown) | [facility] | (no | (units | (unknown) | | | | | [facility] | value) | unknown) | | | | | [facility] | | | | + + + + +---------+ + + + + | Result panel 53 | + + + + + + +---------+ + + | (unknown) | (no date) | (unknown) | [facility] | (no | (units | (unknown) | | | | | [facility] | value) | unknown) | | | | | [facility] | | | | + + + + +---------+ + + + + | Result panel 54 | + + + + + + +---------+ + + | (unknown) | (no date) | (unknown) | [facility] | (no | (units | (unknown) | | | | | [facility] | value) | unknown) | | | | | [facility] | | | | + + + + +---------+ + + + + | Result panel 55 | + + + + + + +---------+ + + | (unknown) | (no date) | (unknown) | [facility] | (no | (units | (unknown) | | | | | [facility] | value) | unknown) | | | | | [facility] | | | | + + + + +---------+ + + + + | Result panel 56 | + + + + + + +---------+ + + | (unknown) | (no date) | (unknown) | [facility] | (no | (units | (unknown) | | | | | [facility] | value) | unknown) | | | | | [facility] | | | | + + + + +---------+ + + + + | Result panel 57 | + + + + + + +---------+ + + | (unknown) | (no date) | (unknown) | [facility] | (no | (units | (unknown) | | | | | [facility] | value) | unknown) | | | [facility] | | | | + + + + +---------+ + + + + | Result panel 58 | + + + + + + +---------+ + + | (unknown) | (no date) | (unknown) | [facility] | (no | (units | (unknown) | | | [facility] | [facility] | | | | [facility] | | | | + + + + +---------+ + + + + | Result panel 59 | + + + + + + +---------+ + + | (unknown) | (no date) | (unknown) | [facility] | (no | (units | (unknown) | | | | [facility] value[facility] | unknown) | | | | | [facility] | | | | + + + + +---------+ + + + + | Result panel 60 | + + + + + + +---------+ + + | (unknown) | (no date) | (unknown) | [facility] | (no | (units | (unknown) | | | | [facility] | [facility] | | | [facility] | | | | + + + + +---------+ + + + + | Result panel 61 | + + + + + + +---------+ + + | (unknown) | (no date) | (unknown) | [facility] | (no | (units | (unknown) | | | | [facility] | [facility] | | | [facility] | | | | + + + + +---------+ + + + + | Result panel 62 | + + + + + + +---------+ + + | (unknown) | (no date) | (unknown) | [facility] | (no | (units | (unknown) | | | | [facility] | [facility] | | | [facility] | | | | + + + + +---------+ + + + + | Result panel 63 | + + + + + + +---------+ + + | (unknown) | (no date) | (unknown) | [facility] | (no | (units | (unknown) | | | | [facility] | [facility] | | [facility] | | | | + + + + +---------+ + + + + | Result panel 64 | + + + + + + +---------+ + + | (unknown) | (no date) | (unknown) | [facility] | (no | (units | (unknown) | | | | [facility] | [facility] | | | [facility] | | | | + + + + +---------+ + + + + | Result panel 65 | + + + + + + +---------+ + + | (unknown) | (no date) | (unknown) | [facility] | (no | (units | (unknown) | | | | [facility] | [facility] | | [facility] | | | | + + + + +---------+ + + + + | Result panel 66 | + + + + + + +---------+ + + | (unknown) | (no date) | (unknown) | [facility] | (no | (units | (unknown) | | | | [facility] | [facility] | | | [facility] | | | | + + + + +---------+ + + + + | Result panel 67 | + + + + + + +---------+ + + | (unknown) | (no date) | (unknown) | [facility] | (no | (units | (unknown) | | | | [facility] | [facility] | | [facility] | | | | + + + + +---------+ + + + + | Result panel 68 | + + + + + + +---------+ + + | (unknown) | (no date) | (unknown) | [facility] | (no | (units | (unknown) | | | | [facility] | [facility]) | | | [facility] | | | | + + + + +---------+ + + + + | Result panel 69 | + + + + + + +---------+ + + | (unknown) | (no date) | (unknown) | [facility] | (no | (units | (unknown) | | | | [facility] | [facility]) | | | | [facility] | | | | + + + + +---------+ + + + + | Result panel 70 | + + + + + + +---------+ + + | (unknown) | (no date) | (unknown) | [facility] | (no | (units | (unknown) | | | | [facility] | [facility]) | | | | [facility] | | | | + + + + +---------+ + + + + | Result panel 71 | + + + + + + +---------+ + + | (unknown) | (no date) | (unknown) | [facility] | (no | (units | (unknown) | | | | [facility] | [facility]) | | [facility] | [facility] | | | | + + + + +---------+ + + + + | Result panel 72 | + + + + + + +---------+ + + | (unknown) | (no date) | (unknown) | [facility] | (no | (units | (unknown) | | | | [facility] | [facility]) | | | | [facility] | | | | + + + + +---------+ + + + + | Result panel 73 | + + + + + + +---------+ + + | (unknown) | (no date) | (unknown) | [facility] | (no | (units | (unknown) | | | | [facility] | [facility]) | | | | | [facility] | | | | + + + + +---------+ + + + + | Result panel 74 | + + + + + + +---------+ + + | (unknown) | (no date) | (unknown) | [facility] | (no | (units | (unknown) | | | | [facility]) | [facility]) | | [facility] | [facility] | | | | + + + + +---------+ + + + + | Result panel 75 | + + + + + + +---------+ + + | (unknown) | (no date) | (unknown) | [facility] | (no | (units | (unknown) | | | | [facility] | [facility]) | | [facility] | | | | + + + + +---------+ + + + + | Result panel 76 | + + + + + + +---------+ + + | (unknown) | (no date) | (unknown) | [facility] | (no | (units | (unknown) | | | | [facility] | [facility]) | | | | [facility] | | | | + + + + +---------+ + + + + | Result panel 77 | + + + + + + +---------+ + + | (unknown) | (no date) | (unknown) | [facility] | (no | (units | (unknown) | | | | [facility] | [facility] | | | [facility] | | | | + + + + +---------+ + + + + | Result panel 78 | + + + + + + +---------+ + + | (unknown) | (no date) | (unknown) | [facility] | (no | (units | (unknown) | | | | [facility] | [facility]) | | | | [facility] | | | | + + + + +---------+ + + + + | Result panel 79 | + + + + + + +---------+ + + | (unknown) | (no date) | (unknown) | [facility] | (no | (units | (unknown) | | | | [facility]) | [facility]) | | | | | [facility] | | | | + + + + +---------+ + + + + | Result panel 80 | + + + + + + +---------+ + + | (unknown) | (no date) | (unknown) | [facility] | (no | (units | (unknown) | | | | [facility] | [facility]) | | | | | [facility] | | | | + + + + +---------+ + + + + | Result panel 81 | + + + + + + +---------+ + + | (unknown) | (no date) | (unknown) | [facility] | (no | (units | (unknown) | | | | [facility] value[facility] | [facility]) | | | | [facility] | | | | + + + + +---------+ + + + + | Result panel 82 | + + + + + + +---------+ + + | (unknown) | (no date) | (unknown) | [facility] | (no | (units | (unknown) | | | | [facility] value[facility] | [facility]) | | | | [facility] | | | | + + + + +---------+ + + + + | Result panel 83 | + + + + + + +---------+ + + | (unknown) | (no date) | (unknown) | [facility] | (no | (units | (unknown) | | | | [facility]) | [facility]) | [facility] | | [facility] | | | | + + + + +---------+ + + + + | Result panel 84 | + + + + + + +---------+ + + | (unknown) | (no date) | (unknown) | [facility] | (no | (units | (unknown) | | | | [facility]) | [facility]) | | | [facility] | | | | + + + + +---------+ + + + + | Result panel 85 | + + + + + + +---------+ + + | (unknown) | (no date) | (unknown) | [facility] | (no | (units | (unknown) | | | | [facility] | [facility]) | | | | [facility] | | | | + + + + +---------+ + + + + | Result panel 86 | + + + + + + +---------+ + + | (unknown) | (no date) | (unknown) | [facility] | (no | (units | (unknown) | | | | [facility] value[facility] | unknown) | | | | | [facility] | | | | + + + + +---------+ + + + + | Result panel 87 | + + + + + + +---------+ + + | (unknown) | (no date) | (unknown) | [facility] | (no | (units | (unknown) | | | | [facility] | unknown) | | | | [facility] | | | | + + + + +---------+ + + + + | Result panel 88 | + + + + + + +---------+ + + | (unknown) | (no date) | (unknown) | [facility] | (no | (units | (unknown) | | | | [facility] | unknown) | | | | | [facility] | | | | + + + + +---------+ + + + + | Result panel 89 | + + + + + + +---------+ + + | (unknown) | (no date) | (unknown) | [facility] | (no | (units | (unknown) | | | | [facility] value[facility] | [facility]) | [facility] | | [facility] | | | | + + + + +---------+ + + + + | Result panel 90 | + + + + + + +---------+ + + | (unknown) | (no date) | (unknown) | [facility] | (no | (units | (unknown) | | | | [facility] value) | unknown) | | | | | [facility] | | | | + + + + +---------+ + + + + | Result panel 91 | + + + + + + +---------+ + + | (unknown) | (no date) | (unknown) | [facility] | (no | (units | (unknown) | | | | [facility] value) | unknown) | | | | | [facility] | | | | + + + + +---------+ + + + + | Result panel 92 | + + + + + + +---------+ + + | (unknown) | (no date) | (unknown) | [facility] | (no | (units | (unknown) | | | | [facility] value[facility] | [facility]) | [facility] | | [facility] | | | | + + + + +---------+ + + + + | Result panel 93 | + + + + + + +---------+ + + | (unknown) | (no date) | (unknown) | [facility] | (no | (units | (unknown) | | | | | [facility] value) | unknown) | | | | | [facility] | | | | + + + + +---------+ + + + + | Result panel 94 | + + + + + + +---------+ + + | (unknown) | (no date) | (unknown) | [facility] | (no | (units | (unknown) | | | | [facility] value) | unknown) | | | | | [facility] | | | | + + + + +---------+ + + + + | Result panel 95 | + + + + + + +---------+ + + | (unknown) | (no date) | (unknown) | [facility] | (no | (units | (unknown) | | | | [facility] value[facility] | unknown) | | | | | [facility] | | | | + + + + +---------+ + + + + | Result panel 96 | + + + + + + +---------+ + + | (unknown) | (no date) | (unknown) | [facility] | (no | (units | (unknown) | | | | [facility] value) | unknown) | | | | | [facility] | | | | + + + + +---------+ + + + + | Result panel 97 | + + + + + + +---------+ + + | (unknown) | (no date) | (unknown) | [facility] | (no | (units | (unknown) | | | | [facility] value[facility] | unknown) | | | | [facility] | | | | + + + + +---------+ + + + + | Result panel 98 | + + + + + + +---------+ + + | (unknown) | (no date) | (unknown) | [facility] | (no | (units | (unknown) | | | | [facility] value) | unknown) | | | | | [facility] | | | | + + + + +---------+ + + + + | Result panel 99 | + + + + + + +---------+ + + | (unknown) | (no date) | (unknown) | [facility] | (no | (units | (unknown) | | | | [facility] value[facility] | unknown) | | | | [facility] | | | | + + + + +---------+ + + + + | Result panel 100 | + + + + + + +---------+ + + | (unknown) | (no date) | (unknown) | [facility] | (no | (units | (unknown) | | | | | [facility] value) | unknown) | | | | | [facility] | | | | + + + + +---------+ + + + + | Result panel 101 | + + + + + + +---------+ + + | (unknown) | (no date) | (unknown) | [facility] | (no | (units | (unknown) | | | | [facility] value) | unknown) | | | | | [facility] | | | | + + + + +---------+ + + + + | Result panel 102 | + + + + + + +---------+ + + | (unknown) | (no date) | (unknown) | [facility] | (no | (units | (unknown) | | | | [facility] value) | unknown) | | | | | [facility] | | | | + + + + +---------+ + + + + | Result panel 103 | + + + + + + +---------+ + + | (unknown) | (no date) | (unknown) | [facility] | (no | (units | (unknown) | | | | | [facility] value) | unknown) | | | | | [facility] | | | | + + + + +---------+ + + + + | Result panel 104 | + + + + + + +---------+ + + | (unknown) | (no date) | (unknown) | [facility] | (no | (units | (unknown) | | | | [facility] value) | unknown) | | | | | [facility] | | | | + + + + +---------+ + + + + | Result panel 105 | + + + + + + +---------+ + + | (unknown) | (no date) | (unknown) | [facility] | (no | (units | (unknown) | | | | [facility] value) | unknown) | | | | | [facility] | | | | + + + + +---------+ + + + + | Result panel 106 | + + + + + + +---------+ + + | (unknown) | (no date) | (unknown) | [facility] | (no | (units | (unknown) | | | | [facility] value) | unknown) | | | | | [facility] | | | | + + + + +---------+ + + + + | Result panel 107 | + + + + + + +---------+ + + | (unknown) | (no date) | (unknown) | [facility] | (no | (units | (unknown) | | | | [facility] value) | unknown) | | | | | [facility] | | | | + + + + +---------+ + + + + | Result panel 108 | + + + + + + +---------+ + + | (unknown) | (no date) | (unknown) | [facility] | (no | (units | (unknown) | | | | [facility] value) | unknown) | | | | | [facility] | | | | + + + + +---------+ + + + + | Result panel 109 | + + + + + + +---------+ + + | (unknown) | (no date) | (unknown) | [facility] | (no | (units | (unknown) | | | | | [facility] value) | unknown) | | | | | [facility] | | | | + + + + +---------+ + + + + | Result panel 110 | + + + + + + +---------+ + + | (unknown) | (no date) | (unknown) | [facility] | (no | (units | (unknown) | | | | | [facility] value) | unknown) | [facility] | | | [facility] | | | | + + + + +---------+ + + + + | Result panel 111 | + + + + + + +---------+ + + | (unknown) | (no date) | (unknown) | [facility] | (no | (units | (unknown) | | | | [facility] value[facility] | unknown) | | | | | [facility] | | | | + + + + +---------+ + + + + | Result panel 112 | + + + + + + +---------+ + + | (unknown) | (no date) | (unknown) | [facility] | (no | (units | (unknown) | | | | [facility] value[facility] | unknown) | | | | | [facility] | | | | + + + + +---------+ + + + + | Result panel 113 | + + + + + + +---------+ + + | (unknown) | (no date) | (unknown) | [facility] | (no | (units | (unknown) | | | | [facility] value) | unknown) | [facility] | | [facility] | | | | + + + + +---------+ + + + + | Result panel 114 | + + + + + + +---------+ + + | (unknown) | (no date) | (unknown) | [facility] | (no | (units | (unknown) | | | | [facility] value) | unknown) | | | | | [facility] | | | | + + + + +---------+ + + + + | Result panel 115 | + + + + + + +---------+ + + | (unknown) | (no date) | (unknown) | [facility] | (no | (units | (unknown) | | | | [facility] value[facility] | unknown) | | | | | [facility] | | | | + + + + +---------+ + + + + | Result panel 116 | + + + + + + +---------+ + + | (unknown) | (no date) | (unknown) | [facility] | (no | (units | (unknown) | | | | [facility] value[facility] | unknown) | | | | [facility] | | | | + + + + +---------+ + + + + | Result panel 117 | + + + + + + +---------+ + + | (unknown) | (no date) | (unknown) | [facility] | (no | (units | (unknown) | | | | [facility] value[facility] | [facility]) | [facility] | | [facility] | | | | + + + + +---------+ + + + + | Result panel 118 | + + + + + + +---------+ + + | (unknown) | (no date) | (unknown) | [facility] | (no | (units | (unknown) | | | | [facility] value[facility] | unknown) | | | | | [facility] | | | | + + + + +---------+ + + + + | Result panel 119 | + + + + + + +---------+ + + | (unknown) | (no date) | (unknown) | [facility] | (no | (units | (unknown) | | | | [facility] value[facility] | [facility]) | | | | [facility] | | | | + + + + +---------+ + + + + | Result panel 120 | + + + + + + +---------+ + + | (unknown) | (no date) | (unknown) | [facility] | (no | (units | (unknown) | | | | [facility] value[facility] | [facility]) | | | | [facility] | | | | + + + + +---------+ + + + + | Result panel 121 | + + + + + + +---------+ + + | (unknown) | (no date) | (unknown) | [facility] | (no | (units | (unknown) | | | | [facility] value[facility] | unknown) | | | | | [facility] | | | | + + + + +---------+ + + + + | Result panel 122 | + + + + + + +---------+ + + | (unknown) | (no date) | (unknown) | [facility] | (no | (units | (unknown) | | | | | [facility] value[facility] | [facility]) | | | | | [facility] | | | | + + + + +---------+ + + + + | Result panel 123 | + + + + + + +---------+ + + | (unknown) | (no date) | (unknown) | [facility] | (no | (units | (unknown) | | | | [facility] value[facility] | [facility]) | | | | | [facility] | | | | + + + + +---------+ + + + + | Result panel 124 | + + + + + + +---------+ + + | (unknown) | (no date) | (unknown) | [facility] | (no | (units | (unknown) | | | | [facility] | value) | unknown) | | | | | [facility] | | | | + + + + +---------+ + + + + | Result panel 125 | + + + + + + +---------+ + + | (unknown) | (no date) | (unknown) | [facility] | (no | (units | (unknown) | | | | [facility] value[facility] | [facility]) | | | | [facility] | | | | + + + + +---------+ + + + + | Result panel 126 | + + + + + + +---------+ + + | (unknown) | (no date) | (unknown) | [facility] | (no | (units | (unknown) | | | | [facility] value) | unknown) | | | | | [facility] | | | | + + + + +---------+ + + + + | Result panel 127 | + + + + + + +---------+ + + | (unknown) | (no date) | (unknown) | [facility] | (no | (units | (unknown) | | | | [facility] value) | [facility]) | [facility] | [facility] | | | | + + + + +---------+ + + + + | Result panel 128 | + + + + + + +---------+ + + | (unknown) | (no date) | (unknown) | [facility] | (no | (units | (unknown) | | | | [facility] value) | unknown) | | | | | [facility] | | | | + + + + +---------+ + + + + | Result panel 129 | + + + + + + +---------+ + + | (unknown) | (no date) | (unknown) | [facility] | (no | (units | (unknown) | | | | | [facility] value) | unknown) | | | | | [facility] | | | | + + + + +---------+ + + + + | Result panel 130 | + + + + + + +---------+ + + | (unknown) | (no date) | (unknown) | [facility] | (no | (units | (unknown) | | | | [facility] value) | unknown) | | | | | [facility] | | | | + + + + +---------+ + + + + | Result panel 131 | + + + + + + +---------+ + + | (unknown) | (no date) | (unknown) | [facility] | (no | (units | (unknown) | | | | | [facility] value) | unknown) | | | | | [facility] | | | | + + + + +---------+ + + + + | Result panel 132 | + + + + + + +---------+ + + | (unknown) | (no date) | (unknown) | [facility] | (no | (units | (unknown) | | | | [facility] value) | unknown) | | | | | [facility] | | | | + + + + +---------+ + + + + | Result panel 133 | + + + + + + +---------+ + + | (unknown) | (no date) | (unknown) | [facility] | (no | (units | (unknown) | | | | [facility] value) | unknown) | | | | | [facility] | | | | + + + + +---------+ + + + + | Result panel 134 | + + + + + + +---------+ + + | (unknown) | (no date) | (unknown) | [facility] | (no | (units | (unknown) | | | | [facility] value) | unknown) | | | | | [facility] | | | | + + + + +---------+ + + + + | Result panel 135 | + + + + + + +---------+ + + | (unknown) | (no date) | (unknown) | [facility] | (no | (units | (unknown) | | | | [facility] value) | unknown) | | | | | [facility] | | | | + + + + +---------+ + + + + | Result panel 136 | + + + + + + +---------+ + + | (unknown) | (no date) | (unknown) | [facility] | (no | (units | (unknown) | | | | [facility] value) | unknown) | | | | | [facility] | | | | + + + + +---------+ + + + + | Result panel 137 | + + + + + + +---------+ + + | (unknown) | (no date) | (unknown) | [facility] | (no | (units | (unknown) | | | | [facility] value) | unknown) | | | | | [facility] | | | | + + + + +---------+ + + + + | Result panel 138 | + + + + + + +---------+ + + | (unknown) | (no date) | (unknown) | [facility] | (no | (units | (unknown) | | | | [facility] value) | unknown) | | | | | [facility] | | | | + + + + +---------+ + + + + | Result panel 139 | + + + + + + +---------+ + + | (unknown) | (no date) | (unknown) | [facility] | (no | (units | (unknown) | | | | [facility] value) | unknown) | | | | | [facility] | | | | + + + + +---------+ + + + + | Result panel 140 | + + + + + + +---------+ + + | (unknown) | (no date) | (unknown) | [facility] | (no | (units | (unknown) | | | | [facility] value) | unknown) | | | | | [facility] | | | | + + + + +---------+ + + + + | Result panel 141 | + + + + + + +---------+ + + | (unknown) | (no date) | (unknown) | [facility] | (no | (units | (unknown) | | | | [facility] value) | unknown) | | | | | [facility] | | | | + + + + +---------+ + + + + | Result panel 142 | + + + + + + +---------+ + + | (unknown) | (no date) | (unknown) | [facility] | (no | (units | (unknown) | | | | [facility] value) | unknown) | | | | | [facility] | | | | + + + + +---------+ + + + + | Result panel 143 | + + + + + + +---------+ + + | (unknown) | (no date) | (unknown) | [facility] | (no | (units | (unknown) | | | | [facility] value) | unknown) | | | | [facility] | | | | + + + + +---------+ + + + + | Result panel 144 | + + + + + + +---------+ + + | (unknown) | (no date) | (unknown) | [facility] | (no | (units | (unknown) | | | | [facility] | value) | unknown) | | | | | [facility] | | | | + + + + +---------+ + + + + | Result panel 145 | + + + + + + +---------+ + + | (unknown) | (no date) | (unknown) | [facility] | (no | (units | (unknown) | | | | [facility] value) | unknown) | | | | | [facility] | | | | + + + + +---------+ + + + + | Result panel 146 | + + + + + + +---------+ + + | (unknown) | (no date) | (unknown) | [facility] | (no | (units | (unknown) | | | | [facility] value) | unknown) | | | | | [facility] | | | | + + + + +---------+ + + + + | Result panel 147 | + + + + + + +---------+ + + | (unknown) | (no date) | (unknown) | [facility] | (no | (units | (unknown) | | | | [facility] value) | unknown) | | | | | [facility] | | | | + + + + +---------+ + + + + | Result panel 148 | + + + + + + +---------+ + + | (unknown) | (no date) | (unknown) | [facility] | (no | (units | (unknown) | | | | [facility] value) | unknown) | | | | | [facility] | | | | + + + + +---------+ + + + + | Result panel 149 | + + + + + + +---------+ + + | (unknown) | (no date) | (unknown) | [facility] | (no | (units | (unknown) | | | | [facility] value) | [facility]) | [facility] | | [facility] | | | | + + + + +---------+ + + + + | Result panel 150 | + + + + + + +---------+ + + | (unknown) | (no date) | (unknown) | [facility] | (no | (units | (unknown) | | | | [facility] value) | unknown) | | | | | [facility] | | | | + + + + +---------+ + + + + | Result panel 151 | + + + + + + +---------+ + + | (unknown) | (no date) | (unknown) | [facility] | (no | (units | (unknown) | | | | [facility] value) | [facility]) | | | | | [facility] | | | | + + + + +---------+ + + + + | Result panel 152 | + + + + + + +---------+ + + | (unknown) | (no date) | (unknown) | [facility] | (no | (units | (unknown) | | | | [facility] value) | unknown) | | | | | [facility] | | | | + + + + +---------+ + + + + | Result panel 153 | + + + + + + +---------+ + + | (unknown) | (no date) | (unknown) | [facility] | (no | (units | (unknown) | | | | [facility] value) | unknown) | | | | | [facility] | | | | + + + + +---------+ + + + + | Result panel 154 | + + + + + + +---------+ + + | (unknown) | (no date) | (unknown) | [facility] | (no | (units | (unknown) | | | | [facility] value) | unknown) | | | | [facility] | | | | + + + + +---------+ + + + + | Result panel 155 | + + + + + + +---------+ + + | (unknown) | (no date) | (unknown) | [facility] | (no | (units | (unknown) | | | | [facility] value) | [facility]) | | | | | [facility] | | | | + + + + +---------+ + + + + | Result panel 156 | + + + + + + +---------+ + + | (unknown) | (no date) | (unknown) | [facility] | (no | (units | (unknown) | | | | [facility] | [facility]) | | | | [facility] | | | | + + + + +---------+ + + + + | Result panel 157 | + + + + + + +---------+ + + | (unknown) | (no date) | (unknown) | [facility] | (no | (units | (unknown) | | | | [facility] | [facility]) | | | | | [facility] | | | | + + + + +---------+ + + + + | Result panel 158 | + + + + + + +---------+ + + | (unknown) | (no date) | (unknown) | [facility] | (no | (units | (unknown) | | | | [facility] value) | unknown) | | | | | [facility] | | | | + + + + +---------+ + + + + | Result panel 159 | + + + + + + +---------+ + + | (unknown) | (no date) | (unknown) | [facility] | (no | (units | (unknown) | | | | [facility] value[facility] | unknown) | | | | | [facility] | | | | + + + + +---------+ + + + + | Result panel 160 | + + + + + + +---------+ + + | (unknown) | (no date) | (unknown) | [facility] | (no | (units | (unknown) | | | | [facility] | unknown) | | | | | [facility] | | | | + + + + +---------+ + + + + | Result panel 161 | + + + + + + +---------+ + + | (unknown) | (no date) | (unknown) | [facility] | (no | (units | (unknown) | | | | [facility] | value) | unknown) | | | | | | [facility] | | | | + + + + +---------+ + + + + | Result panel 162 | + + + + + + +---------+ + + | (unknown) | (no date) | (unknown) | [facility] | (no | (units | (unknown) | | | | [facility] | value) | unknown) | | | | | | [facility] | | | | + + + + +---------+ + + + + | Result panel 163 | + + + + + + +---------+ + + | (unknown) | (no date) | (unknown) | [facility] | (no | (units | (unknown) | | | | [facility] | value) | unknown) | | | | | [facility] | | | | + + + + +---------+ + + + + | Result panel 164 | + + + + + + +---------+ + + | (unknown) | (no date) | (unknown) | [facility] | (no | (units | (unknown) | | | | [facility] | value) | unknown) | | | | | [facility] | | | | + + + + +---------+ + + + + | Result panel 165 | + + + + + + +---------+ + + | (unknown) | (no date) | (unknown) | [facility] | (no | (units | (unknown) | | | | [facility] | value) | unknown) | | | | | | [facility] | | | | + + + + +---------+ + + + + | Result panel 166 | + + + + + + +---------+ + + | (unknown) | (no date) | (unknown) | [facility] | (no | (units | (unknown) | | | | [facility] | value) | unknown) | | | | | [facility] | | | | + + + + +---------+ + + + + | Result panel 167 | + + + + + + +---------+ + + | (unknown) | (no date) | (unknown) | [facility] | (no | (units | (unknown) | | | | [facility] | value) | unknown) | | | | | [facility] | | | | + + + + +---------+ + + + + | Result panel 168 | + + + + + + +---------+ + + | (unknown) | (no date) | (unknown) | [facility] | (no | (units | (unknown) | | | | [facility] value) | unknown) | | | | | [facility] | | | | + + + + +---------+ + + + + | Result panel 169 | + + + + + + +---------+ + + | (unknown) | (no date) | (unknown) | [facility] | (no | (units | (unknown) | | | | | [facility] | value) | unknown) | | | | | | [facility] | | | | + + + + +---------+ + + + + | Result panel 170 | + + + + + + +---------+ + + | (unknown) | (no date) | (unknown) | [facility] | (no | (units | (unknown) | | [facility] | [facility] | | | | + + + + +---------+ + + + + | Result panel 171 | + + + + + + +---------+ + + | (unknown) | (no date) | (unknown) | [facility] | (no | (units | (unknown) | | | [facility] value[facility] | unknown) | [facility] | | | | + + + + +---------+ + + + + | Result panel 172 | + + + + + + +---------+ + + | (unknown) | (no date) | (unknown) | [facility] | (no | (units | (unknown) | | | [facility] value[facility] | [facility]) | [facility] | | | | + + + + +---------+ + + + + | Result panel 173 | + + + + + + +---------+ + + | (unknown) | (no date) | (unknown) | [facility] | (no | (units | (unknown) | | | [facility] value) | unknown) | | [facility] | | | | + + + + +---------+ + + + + | Result panel 174 | + + + + + + +---------+ + + | (unknown) | (no date) | (unknown) | [facility] | (no | (units | (unknown) | | | [facility] value) | unknown) | [facility] | | | | + + + + +---------+ + + + + | Result panel 175 | + + + + + + +---------+ + + | (unknown) | (no date) | (unknown) | [facility] | (no | (units | (unknown) | | | | [facility] value) | unknown) | [facility] | | | | + + + + +---------+ + + + + | Result panel 176 | + + + + + + +---------+ + + | (unknown) | (no date) | (unknown) | [facility] | (no | (units | (unknown) | | | [facility] value[facility] | [facility]) | [facility] | | | | + + + + +---------+ + + + + | Result panel 177 | + + + + + + +---------+ + + | (unknown) | (no date) | (unknown) | [facility] | (no | (units | (unknown) | | | | [facility] value) | unknown) | [facility] | | | | + + + + +---------+ + + + + | Result panel 178 | + + + + + + +---------+ + + | (unknown) | (no date) | (unknown) | [facility] | (no | (units | (unknown) | | | | [facility] value) | [facility]) | [facility] | | | | + + + + +---------+ + + + + | Result panel 179 | + + + + + + +---------+ + + | (unknown) | (no date) | (unknown) | [facility] | (no | (units | (unknown) | | | | [facility] | [facility]) | [facility] | | | | + + + + +---------+ + + + + | Result panel 180 | + + + + + + +---------+ + + | (unknown) | (no date) | (unknown) | [facility] | (no | (units | (unknown) | | | | [facility]) | [facility]) | [facility] | | | | + + + + +---------+ + + + + | Result panel 181 | + + + + + + +---------+ + + | (unknown) | (no date) | (unknown) | [facility] | (no | (units | (unknown) | | | | [facility] value) | [facility]) | [facility] | | | | + + + + +---------+ + + + + | Result panel 182 | + + + + + + +---------+ + + | (unknown) | (no date) | (unknown) | [facility] | (no | (units | (unknown) | | | | [facility] value) | [facility]) | [facility] | | | | + + + + +---------+ + + + + | Result panel 183 | + + + + + + +---------+ + + | (unknown) | (no date) | (unknown) | [facility] | (no | (units | (unknown) | | | | [facility] value) | [facility]) | | [facility] | | | | + + + + +---------+ + + + + | Result panel 184 | + + + + + + +---------+ + + | (unknown) | (no date) | (unknown) | [facility] | (no | (units | (unknown) | | | | [facility] value) | [facility]) | | [facility] | | | | + + + + +---------+ + + + + | Result panel 185 | + + + + + + +---------+ + + | (unknown) | (no date) | (unknown) | [facility] | (no | (units | (unknown) | | | | [facility] value[facility] | [facility]) | [facility] | | | | + + + + +---------+ + + + + | Result panel 186 | + + + + + + +---------+ + + | (unknown) | (no date) | (unknown) | [facility] | (no | (units | (unknown) | | | | [facility] value[facility] | [facility]) | [facility] | | | | + + + + +---------+ + + + + | Result panel 187 | + + + + + + +---------+ + + | (unknown) | (no date) | (unknown) | [facility] | (no | (units | (unknown) | | | [facility] value) | unknown) | | | [facility] | | | | + + + + +---------+ + + + + | Result panel 188 | + + + + + + +---------+ + + | (unknown) | (no date) | (unknown) | [facility] | (no | (units | (unknown) | | | | [facility] | [facility] | | [facility] | | | | + + + + +---------+ + + + + | Result panel 189 | + + + + + + +---------+ + + | (unknown) | (no date) | (unknown) | [facility] | (no | (units | (unknown) | | | | [facility] | [facility] | [facility] | | | | + + + + +---------+ + + + + | Result panel 190 | + + + + + + +---------+ + + | (unknown) | (no date) | (unknown) | [facility] | (no | (units | (unknown) | | | | [facility] | [facility]) | [facility] | | | | + + + + +---------+ + + + + | Result panel 191 | + + + + + + +---------+ + + | (unknown) | (no date) | (unknown) | [facility] | (no | (units | (unknown) | | | | [facility] | [facility]) | [facility] | | | | + + + + +---------+ + + + + | Result panel 192 | + + + + + + +---------+ + + | (unknown) | (no date) | (unknown) | [facility] | (no | (units | (unknown) | | | | [facility] | [facility]) | [facility] | | | | + + + + +---------+ + + + + | Result panel 193 | + + + + + + +---------+ + + | (unknown) | (no date) | (unknown) | [facility] | (no | (units | (unknown) | | | | [facility] | [facility]) | | [facility] | | | | + + + + +---------+ + + + + | Result panel 194 | + + + + + + +---------+ + + | (unknown) | (no date) | (unknown) | [facility] | (no | (units | (unknown) | | | | [facility] | [facility]) | [facility] | | | | + + + + +---------+ + + Social History No information. Vital Signs + + + +---------+ | date | measurement | value | units | + + + +---------+ | 2021-10-23 00:00 | BMI | 29.1 | kg/m2 | + + + +---------+ | 2021-10-23 00:00 | BP_diastolic | 83 | mmHg | + + + +---------+ | 2021-10-23 00:00 | BP_systolic | 144 | mmHg | + + + +---------+ | 2021-10-23 00:00 | heart_rate | 101 | /min | + + + +---------+ | 2021-10-23 00:00 | height_metric | 167.64 | cm | + + + +---------+ | 2021-10-23 00:00 | height_standard | 66 | in | + + + +---------+ | 2021-10-23 00:00 | o2_saturation | 99 | % | + + + +---------+ | 2021-10-23 00:00 | respiration_rate | 20 | /min | + + + +---------+ | 2021-10-23 00:00 | temperature_metric | 36.44 | C | | | | | | + + + +---------+ | 2021-10-23 00:00 | | 97.6 | F | | | temperature_standar | | | | | d | | | + + + +---------+ | 2021-10-23 00:00 | weight_metric | 81.65 | kg | + + + +---------+ | 2021-10-23 00:00 | weight_standard | 180 | lb | + + + +---------+ | 2021-11-18 00:00 | BMI | 34.9 | kg/m2 | + + + +---------+ | 2021-11-18 00:00 | height_metric | 165.1 | cm | + + + +---------+ | 2021-11-18 00:00 | height_standard | 65 | in | + + + +---------+ | 2021-11-18 00:00 | weight_metric | 95 | kg | + + + +---------+ | 2021-11-18 00:00 | weight_standard | 209.44 | lb | + + + +---------+ | 2021-11-21 00:00 | BP_diastolic | 80 | mmHg | + + + +---------+ | 2021-11-21 00:00 | BP_systolic | 144 | mmHg | + + + +---------+ | 2021-11-21 00:00 | heart_rate | 90 | /min | + + + +---------+ | 2021-11-21 00:00 | o2_saturation | 99 | % | + + + +---------+ | 2021-11-21 00:00 | respiration_rate | 17 | /min | + + + +---------+ | 2021-11-21 00:00 | temperature_metric | 36.78 | C | | | | | | + + + +---------+ | 2021-11-21 00:00 | | 98.2 | F | | | temperature_standar | | | | | d | | | + + + +---------+ | 2021-12-18 00:00 | BMI | 33.3 | kg/m2 | + + + +---------+ | 2021-12-18 00:00 | BP_diastolic | 77 | mmHg | + + + +---------+ | 2021-12-18 00:00 | BP_systolic | 131 | mmHg | + + + +---------+ | 2021-12-18 00:00 | heart_rate | 98 | /min | + + + +---------+ | 2021-12-18 00:00 | height_metric | 165.1 | cm | + + + +---------+ | 2021-12-18 00:00 | height_standard | 65 | in | + + + +---------+ | 2021-12-18 00:00 | o2_saturation | 100 | % | + + + +---------+ | 2021-12-18 00:00 | respiration_rate | 18 | /min | + + + +---------+ | 2021-12-18 00:00 | temperature_metric | 36.72 | C | | | | | | + + + +---------+ | 2021-12-18 00:00 | | 98.1 | F | | | temperature_standar | | | | | d | | | + + + +---------+ | 2021-12-18 00:00 | weight_metric | 90.72 | kg | + + + +---------+ | 2021-12-18 00:00 | weight_standard | 200 | lb | + + + +---------+ | 2022-03-25 00:00 | BMI | 33.3 | kg/m2 | + + + +---------+ | 2022-03-25 00:00 | BP_diastolic | 80 | mmHg | + + + +---------+ | 2022-03-25 00:00 | BP_systolic | 140 | mmHg | + + + +---------+ | 2022-03-25 00:00 | heart_rate | 92 | /min | + + + +---------+ | 2022-03-25 00:00 | height_metric | 165.1 | cm | + + + +---------+ | 2022-03-25 00:00 | height_standard | 65 | in | + + + +---------+ | 2022-03-25 00:00 | o2_saturation | 99 | % | + + + +---------+ | 2022-03-25 00:00 | respiration_rate | 18 | /min | + + + +---------+ | 2022-03-25 00:00 | temperature_metric | 37 | C | | | | | | + + + +---------+ | 2022-03-25 00:00 | | 98.6 | F | | | temperature_standar | | | | | d | | | + + + +---------+ | 2022-03-25 00:00 | weight_metric | 90.72 | kg | + + + +---------+ | 2022-03-25 00:00 | weight_standard | 200 | lb | + + + +---------+ | 2022-05-26 00:00 | BMI | 33.3 | kg/m2 | + + + +---------+ | 2022-05-26 00:00 | BP_diastolic | 92 | mmHg | + + + +---------+ | 2022-05-26 00:00 | BP_systolic | 157 | mmHg | + + + +---------+ | 2022-05-26 00:00 | heart_rate | 97 | /min | + + + +---------+ | 2022-05-26 00:00 | height_metric | 165.1 | cm | + + + +---------+ | 2022-05-26 00:00 | height_standard | 65 | in | + + + +---------+ | 2022-05-26 00:00 | o2_saturation | 100 | % | + + + +---------+ | 2022-05-26 00:00 | respiration_rate | 22 | /min | + + + +---------+ | 2022-05-26 00:00 | temperature_metric | 36.61 | C | | | | | | + + + +---------+ | 2022-05-26 00:00 | | 97.9 | F | | | temperature_standar | | | | | d | | | + + + +---------+ | 2022-05-26 00:00 | weight_metric | 90.72 | kg | + + + +---------+ | 2022-05-26 00:00 | weight_standard | 200 | lb | + + + +---------+ | 2022-08-05 00:00 | BMI | 34.8 | kg/m2 | + + + +---------+ | 2022-08-05 00:00 | height_metric | 165.1 | cm | + + + +---------+ | 2022-08-05 00:00 | height_standard | 65 | in | + + + +---------+ | 2022-08-05 00:00 | weight_metric | 94.8 | kg | + + + +---------+ | 2022-08-05 00:00 | weight_standard | 209 | lb | + + + +---------+ | 2022-08-11 00:00 | BP_diastolic | 79 | mmHg | + + + +---------+ | 2022-08-11 00:00 | BP_systolic | 127 | mmHg | + + + +---------+ | 2022-08-11 00:00 | heart_rate | 93 | /min | + + + +---------+ | 2022-08-11 00:00 | o2_saturation | 100 | % | + + + +---------+ | 2022-08-11 00:00 | respiration_rate | 16 | /min | + + + +---------+ | 2022-08-11 00:00 | temperature_metric | 36.61 | C | | | | | | + + + +---------+ | 2022-08-11 00:00 | | 97.9 | F | | | temperature_standar | | | | | d | | | + + + +---------+"
--- OUTSIDE RECORDS SUMMARY | ~2022-09-30 | XMS | Continuity of Care Document ---
Demographics + + + | Address | [address] | | | [place] [address] | + + + | Preferred Language | Unknown | + + + | Marital Status | | + + + | Synagogue Affiliation | Unknown | + + + | Race | White | + + + | Ethnic Group | Not or | + + + Author + + + | Author | [facility] | + + + | Organization | [facility] | + + + | Address | [address] | | | [place] [address] | + + + | Phone | | + + + Care Team Providers + + + + | [employer] Teacher Name | Role | Phone | + + + + Unavailable | Unavailable | + + + + Unavailable | Unavailable | + + + + Unavailable | Unavailable | + + + + Allergies and Intolerances + + + + + | date | description | facility | type | + + + + + | (no date) | Mild | [facility] (unknown[facility] | [facility] | | + + + + + | (no date) | Erythromycin base | [facility] | (unknown) | | | | [facility] | | + + + + + | (no date) | Anaphylaxis | [facility] | (unknown) | | | | [facility] | | + + + + + | (no date) | Itching | [facility] | (unknown) | | | [facility] | | + + + + + | (no date) | Penicillin | [facility] | (unknown) | | | [facility] Hospital | | + + + + + | (no date) | Penicillin | [facility] | (unknown) | | | [facility] | | + + + + + | (no date) | Erythromycin base | [facility] | (unknown) | | | [facility] | | + + + + + | (no date) | Penicillin | [facility] | (unknown) | | | [facility] Hospital | | + + + + + | (no date) | Penicillin | [facility] | (unknown) | | | | Hospital | | + + + + + Encounters No information. Functional Status No information. Immunizations No information. Medications + + + + | date | description | facility | + + + + | 2022-08-11 00:00 | ESTROGEN,CON/M-PROGEST | [facility] | | | ACET | | + + + + | 2021-10-23 00:00 | CETIRIZINE HCL | [facility] | + + + + | 2021-11-21 00:00 | CETIRIZINE HCL | [facility] | + + + + | 2021-12-18 00:00 | CETIRIZINE HCL | [facility] | + + + + | 2022-03-27 00:00 | CETIRIZINE HCL | [facility] | + + + + | 2022-05-26 00:00 | CETIRIZINE HCL | [facility] | + + + + | 2022-08-11 00:00 | CETIRIZINE HCL | [facility] | + + + + | 2021-10-23 00:00 | MUPIROCIN | [facility] | + + + + | 2021-11-21 00:00 | MUPIROCIN | [facility] | + + + + | 2021-12-18 00:00 | MUPIROCIN | [facility] | + + + + | 2022-03-27 00:00 | MUPIROCIN | [facility] | + + + + | 2022-05-26 00:00 | MUPIROCIN | [facility] | + + + + | 2022-08-11 00:00 | MUPIROCIN | [facility] | + + + + | 2017-06-02 00:00 | RIVAROXABAN | [facility] | + + + + | 2021-10-23 00:00 | FLUTICASONE PROPIONATE | [facility] | + + + + | 2021-11-21 00:00 | FLUTICASONE PROPIONATE | [facility] | + + + + | 2021-12-18 00:00 | FLUTICASONE PROPIONATE | [facility] | + + + + | 2022-03-27 00:00 | FLUTICASONE PROPIONATE | [facility] | + + + + | 2022-05-26 00:00 | FLUTICASONE PROPIONATE | [facility] | + + + + | 2022-08-11 00:00 | FLUTICASONE PROPIONATE | [facility] | + + + + | 2021-10-23 00:00 | ACETAMINOPHEN | [facility] | + + + + | 2021-11-21 00:00 | ACETAMINOPHEN | [facility] | + + + + | 2021-12-18 00:00 | ACETAMINOPHEN | [facility] | + + + + | 2022-03-27 00:00 | ACETAMINOPHEN | [facility] | + + + + | 2022-05-26 00:00 | ACETAMINOPHEN | [facility] | + + + + | 2022-08-11 00:00 | ACETAMINOPHEN | [facility] | + + + + | 2021-10-23 00:00 | ASCORBIC ACID | [facility] | + + + + | 2021-11-21 00:00 | ASCORBIC ACID | [facility] | + + + + | 2021-12-18 00:00 | ASCORBIC ACID | [facility] | + + + + | 2022-03-27 00:00 | ASCORBIC ACID | [facility] | + + + + | 2022-05-26 00:00 | ASCORBIC ACID | [facility] | + + + + | 2022-08-11 00:00 | ASCORBIC ACID | [facility] | + + + + | 2021-12-18 00:00 | LORAZEPAM | [facility] | + + + + | 2021-10-23 00:00 | OXAPROZIN | [facility] | + + + + | 2021-11-21 00:00 | OXAPROZIN | [facility] | + + + + | 2021-12-18 00:00 | OXAPROZIN | [facility] | + + + + | 2022-03-27 00:00 | OXAPROZIN | [facility] | + + + + | 2022-05-26 00:00 | OXAPROZIN | [facility] | + + + + | 2022-08-11 00:00 | OXAPROZIN | [facility] | + + + + | 2021-10-23 00:00 | FERROUS SULFATE | [facility] | + + + + | 2021-11-21 00:00 | FERROUS SULFATE | [facility] | + + + + | 2021-12-18 00:00 | FERROUS SULFATE | [facility] | + + + + | 2022-03-27 00:00 | FERROUS SULFATE | [facility] | + + + + | 2022-05-26 00:00 | FERROUS SULFATE | [facility] | + + + + | 2022-08-11 00:00 | FERROUS SULFATE | [facility] | + + + + | 2022-03-25 00:00 | FOLIC ACID | [facility] | + + + + | 2020-12-27 00:00 | ONDANSETRON | [facility] | + + + + | 2021-12-18 00:00 | ONDANSETRON | [facility] | + + + + | 2022-03-25 00:00 | THIAMINE HCL | [facility] | + + + + | 2021-10-23 00:00 | OMEPRAZOLE | [facility] | + + + + | 2021-11-21 00:00 | OMEPRAZOLE | [facility] | + + + + | 2021-12-18 00:00 | OMEPRAZOLE | [facility] | + + + + | 2022-03-27 00:00 | OMEPRAZOLE | [facility] | + + + + | 2022-05-26 00:00 | OMEPRAZOLE | [facility] | + + + + | 2022-08-11 00:00 | OMEPRAZOLE | [facility] | + + + + | 2022-08-11 00:00 | DULOXETINE HCL | [facility] | + + + + | 2021-10-23 00:00 | DULOXETINE HCL | [facility] | + + + + | 2021-11-21 00:00 | DULOXETINE HCL | [facility] | + + + + | 2021-12-18 00:00 | DULOXETINE HCL | [facility] | + + + + | 2022-03-27 00:00 | DULOXETINE HCL | [facility] | + + + + | 2022-05-26 00:00 | DULOXETINE HCL | [facility] | + + + + | 2022-08-11 00:00 | DULOXETINE HCL | [facility] | + + + + | 2021-10-23 00:00 | MOMETASONE FUROATE | [facility] | + + + + | 2021-11-21 00:00 | MOMETASONE FUROATE | [facility] | + + + + | 2021-12-18 00:00 | MOMETASONE FUROATE | [facility] | + + + + | 2022-03-27 00:00 | MOMETASONE FUROATE | [facility] | + + + + | 2022-05-26 00:00 | MOMETASONE FUROATE | [facility] | + + + + | 2022-08-11 00:00 | MOMETASONE FUROATE | [facility] | + + + + | 2021-10-23 00:00 | TRAMADOL HCL | [facility] | + + + + | 2021-11-21 00:00 | TRAMADOL HCL | [facility] | + + + + | 2021-12-18 00:00 | TRAMADOL HCL | [facility] | + + + + | 2022-03-27 00:00 | TRAMADOL HCL | [facility] | + + + + | 2022-05-26 00:00 | TRAMADOL HCL | [facility] | + + + + | 2022-08-11 00:00 | TRAMADOL HCL | [facility] | + + + + | 2017-06-02 00:00 | TAPENTADOL HCL | [facility] | + + + + | 2017-06-02 00:00 | TAPENTADOL HCL | [facility] | + + + + | 2017-06-02 00:00 | HYDROCODONE | [facility] | | | BIT/ACETAMINOPHEN | | + + + + | 2017-06-02 00:00 | HYDROCODONE | [facility] | | | BIT/ACETAMINOPHEN | | + + + + | 2021-10-23 00:00 | PRAMIPEXOLE DI-HCL | [facility] | + + + + | 2021-11-21 00:00 | PRAMIPEXOLE DI-HCL | [facility] | + + + + | 2021-12-18 00:00 | PRAMIPEXOLE DI-HCL | [facility] | + + + + | 2022-03-27 00:00 | PRAMIPEXOLE DI-HCL | [facility] | + + + + | 2022-05-26 00:00 | PRAMIPEXOLE DI-HCL | [facility] | + + + + | 2022-08-11 00:00 | PRAMIPEXOLE DI-HCL | [facility] | + + + + | 2022-03-25 00:00 | CHLORDIAZEPOXIDE HCL | [facility] | + + + + | 2022-05-26 00:00 | CHLORDIAZEPOXIDE HCL | [facility] | + + + + | 2021-10-23 00:00 | buPROPion HCL | [facility] | + + + + Problems + + + + | date | description | facility | + + + + | 2020-12-27 00:00 | Acute gastroenteritis | [facility] | + + + + | 2020-12-27 00:00 | Acute gastroenteritis | [facility] | + + + + | 2021-10-23 00:00 | Patient left without being | [facility] | | | seen | | + + + + | 2021-10-23 00:00 | Patient left without being | [facility] | | | seen | | + + + + | 2021-11-18 00:00 | Sepsis | [facility] | + + + + | 2021-11-18 00:00 | Sepsis | [facility] | + + + + | 2021-11-18 00:00 | Hypomagnesemia | [facility] | + + + + | 2021-11-18 00:00 | Hypomagnesemia | [facility] | + + + + | 2021-11-18 00:00 | Dehydration | [facility] | + + + + | 2021-11-18 00:00 | Dehydration | [facility] | + + + + | 2021-11-18 00:00 | Lactic acidosis | [facility] | + + + + | 2021-11-18 00:00 | Lactic acidosis | [facility] | + + + + | 2021-11-18 00:00 | Asthma | [facility] | + + + + | 2021-11-18 00:00 | Asthma | [facility] | + + + + | 2021-11-18 00:00 | Acute kidney injury | [facility] | + + + + | 2021-11-18 00:00 | Acute kidney injury | [facility] | + + + + | 2021-11-18 00:00 | Nausea and vomiting | [facility] | + + + + | 2021-11-18 00:00 | Nausea and vomiting | [facility] | + + + + | 2021-11-18 00:00 | Diarrhea | [facility] | + + + + | 2021-11-18 00:00 | Diarrhea | [facility] | + + + + | 2021-11-18 00:00 | High blood lactic acid | [facility] | | | level | | + + + + | 2021-11-18 00:00 | High blood lactic acid | [facility] | | | level | | + + + + | 2021-11-18 00:00 | Infection due to severe | [facility] | | | acute respiratory syndrome | | | | coronavirus 2 (SARS-CoV-2) | | + + + + | 2021-11-18 00:00 | Infection due to severe | [facility] | | | acute respiratory syndrome | | | | coronavirus 2 (SARS-CoV-2) | | + + + + | 2022-03-25 00:00 | Alcohol abuse | [facility] | + + + + | 2022-03-25 00:00 | Alcohol abuse | [facility] | + + + + | 2022-03-25 00:00 | Alcohol abuse with | [facility] | | | withdrawal without | | | | complication | | + + + + | 2022-03-25 00:00 | Alcohol abuse with | [facility] | | | withdrawal without | | | | complication | | + + + + | 2022-05-26 00:00 | Viral infection | [facility] | + + + + | 2022-05-26 00:00 | Viral infection | [facility] | + + + + | 2022-08-05 00:00 | Concussion | [facility] | + + + + Procedures + + + + | date | description | facility | + + + + | 2021-11-18 00:00 | INTRODUCTION OF | [facility] | | | ANTI-INFLAM INTO PERIPH | | | | VEIN, PERC APPROACH | | + + + + | 2021-11-18 00:00 | MONITORING OF ARTERIAL | [facility] | | | SATURATION, PERIPHERAL, | | | | PERC APPROACH | | + + + + | 2021-11-18 00:00 | ISOLATION | [facility] | + + + + | 2021-11-18 00:00 | INTRODUCE REMDESIVIR IN | [facility] | | | PERIPH VEIN, PERC, NEW TECH | | | | 5 | | + + + + | 2021-11-18 00:00 | RAND SUBRAMANIAN IN | [facility] | | | [place], [place] [...] (unknown) | (no date) | (unknown) | [facility] | (no | (units | (unknown) | | | | | [place] | value) | unknown) | | | [...]
[~2022-09-30 10:35] MED LIST changes: +B-100 COMPLEX100 MG PO; +DULOXETINE HCL30 MG PO; +PREDNISONE20 MG PO; +PREMPRO 0.3 MG1 EACH PO
--- OUTSIDE RECORDS SUMMARY | 2022-09-30 10:37 | XMS ---
PreManage Notification: VAUGHN BUCIO Security Speech Language Pathologist Prn Events 1 event(s) in the past 18 months Most recent security events: Elopement at [facility] 10/23/2021 12:27 - Patient eloped before treatment completed. - Patient with suicidal and/or homicidal ideations eloped. - Patient eloped with IV in place. Details: PATIENT LWBS CRITERIA MET - [facility] CARE PROVIDERS DARLIN KING Physician Case Filler Current PHONE: Unknown Andrew has no Care Guidelines for this patient. Ciara VISIT COUNT (12 MO.) 7 [facility] TOTAL 7 NOTE: Visits indicate total known visits. ED/UCC VISIT TRACKING (12 MO.) 09/30/2022 10:35 [facility] TYPE: Emergency COMPLAINT: - NEED TO DETOX 08/05/2022 16:24 [facility] TYPE: Emergency [...] and (suspected) exposure to COVID-19 - Other long-term (current) drug therapy - Personal history of [...] - Nausea with vomiting, unspecified - Other long-term (current) drug therapy - Personal history of [...] Noninfective gastroenteritis and colitis, unspecified - 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 accountant (current) drug therapy - Personal history of nicotine dependence - Unspecified asthma, uncomplicated 11/18/2021 07:10 [facility] TYPE: Emergency COMPLAINT: - WEAKNESS 10/23/2021 12:27 [facility] TYPE: Emergency COMPLAINT: - FLU SYMPTOMS INPATIENT VISIT TRACKING (12 MO.) 08/05/2022 20:48 [facility] TYPE: Medical Surgical COMPLAINT: - ACUTE ALCOHOL WITHDRAWAL,CONCUSSION/HEAD INJURY DIAGNOSES: - Acute kidney failure, unspecified - Acute kidney failure, unspecified - Alcohol dependence with intoxication delirium - Alcohol dependence with intoxication delirium - Alcohol dependence with withdrawal delirium - Alcohol dependence with withdrawal delirium - Allergy status to other antibiotic agents - Allergy status to other antibiotic agents - Allergy status to penicillin - Allergy status to penicillin - Allergy status to sulfonamides - Allergy status to sulfonamides - Allergy to other foods - Allergy to other foods - Bariatric surgery status - Bariatric surgery status - Blood alcohol level of less than 20 mg/100 ml - Blood alcohol level of less than 20 mg/100 ml - Chronic pain syndrome - Chronic pain syndrome - Concussion without loss of consciousness, initial encounter - Concussion without loss of consciousness, initial encounter - Dehydration - Dehydration - Diarrhea, unspecified - Diarrhea, unspecified - Encephalopathy, unspecified - Gastro-esophageal reflux disease without esophagitis - Gastro-esophageal reflux disease without esophagitis - Metabolic encephalopathy - Metabolic encephalopathy - Other fall on same level, initial encounter - Other fall on same level, initial encounter - Other long-term (current) drug therapy - 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 accountant (current) drug therapy - Other specified anxiety disorders - Other specified anxiety disorders - Personal history of nicotine dependence - Personal history of nicotine dependence - Presence of left artificial hip joint - Presence of left artificial hip joint - Rhabdomyolysis - Rhabdomyolysis - Unspecified asthma, uncomplicated - Unspecified asthma, uncomplicated 11/18/2021 11:[address] [facility] TYPE: Medical Surgical COMPLAINT: - SEPSIS,COVID [...] for immunization - Hypomagnesemia - Hypomagnesemia - [facility]FP (current) use of anticoagulants - [facility]FP (current) use of anticoagulants - [facility]FP (current) use of systemic steroids - [facility]FP (current) use of systemic steroids - Other long-term (current) drug therapy - Other long-term (current) drug therapy - Other specified postprocedural [...] asthma, uncomplicated - Viral intestinal infection, unspecified [email or web address]
[2022-09-30] MEDS ORDERED: ONDANSETRON ODT8 MG PO (12:31)
[2022-09-30] MEDS ORDERED: CHLORDIAZEPOXID25 MG PO (12:31)
[2022-09-30 16:54] VITALS: BP 159/89
== END 2022-09-30 16:56 | disposition home or self-care (01) ==
LOC: ED 10:35
DX: F10.10 Alcohol abuse, uncomplicated (principal); Z87.891 Personal history of nicotine dependence; Z88.0 Allergy status to penicillin; Z88.2 Allergy status to sulfonamides; Z91.018 Allergy to other foods; Z79.899 Other long term (current) drug therapy; Y90.7 Blood alcohol level of 200-239 mg/100 ml
CPT/HCPCS: 36415; 80053; 83690; 83735; 85025; 99284; G0480; J7030